=== PATIENT | female | born 1950 | race Caucasian/White ===

== ENCOUNTER 2019-07-23 23:46 | Emergency (ER) | payer MEDICARE ==
[~2019-07-23] VITALS: Ht 165.1 cm; Wt 95.2 kg
--- OUTSIDE RECORDS SUMMARY | ~2019-07-23 | XMS | Clinical Summary ---
Demographics + + + | Address | [address] | | | [place] [address] | + + + | Home Phone | | + + + | Preferred Language | Unknown | + + + | Marital Status | | + + + | Alevism Affiliation | Unknown | + + + | Race | Unknown | + + + | Ethnic Group | Unknown | + + + Author + + + | Author | [facility] [place] | | | and [place] | + + + | Organization | [facility] [place] | | | and [place] | + + + | Address | Unknown | + + + | Phone | Unavailable | + + + Support + + +---------+ + | Name | Relationship | Address | Phone | + + +---------+ + | stephanie"Inder" Tracy | ECON | Unknown | | + + +---------+ + Care Team Providers + +------+ + | Care Director Of Reservations Name | Role | Phone | + +------+ + | Mack Ravi MD | PCP | | + +------+ + Allergies Not on File Medications Not on file Active Problems Not on file Social History + +-------+ +--------+------+ | Tobacco Use | Types | Packs/Day | Years | Date | | | | | Used | | + +-------+ +--------+------+ | Never Assessed | | | | | + +-------+ +--------+------+ + + + | Sex Assigned at | Date Recorded | | | | + + + | Not on file | | + + + + + + + | Job Start Date | Occupation | Industry | + + + + | Not on file | Not on file | Not on file | + + + + + + + + | Travel History | Travel Start | Travel End | + + + + + + | No recent travel history available. | + + Last Filed Vital Signs Not on file Plan of Treatment +--------+---------+ + + + | Date | Type | Specialty | Care Team | Description | +--------+---------+ + + + | 11/02/ | Office | Cardiology | Joseluis Thomas, | | | 2019 | Visit | | [address] | | | | | | [place], | | | | | | [place] [address] | | | | | | [phone] | | | | | | | | +--------+---------+ + + + + + + + + | Health Maintenance | Due Date | Last Done | Comments | + + + + + | Vaccine: | | | | | Dtap/Tdap/Td (1 - | 3 | | | | Tdap) | | | | + + + + + | Vaccine: Zoster (1 | | | | | of 2) | 2 | | | + + + + + | Breast Cancer | | | | | Screening | 7 | | | + + + + + | Vaccine: | | | | | Pneumococcal 65+ (1 | 7 | | | | of 2 - PCV13) | | | | + + + + + | Vaccine: Influenza | | | | | (Season Ended) | 0 | | | + + + + + Results Not on filefrom Last 3 Months Insurance + +--------+ +--------+ +---------+--------+ | Payer | Benefi | Subscriber | Effect | Phone | Address | Type | | | t Plan | ID | xiomy | | | | | | / | | Dates | | | | | | Group | | | | | | + +--------+ +--------+ +---------+--------+ | MEDICARE | MEDICA | [id number] | 06/19/19 | [phone] | | Medica | | | RE | | 07-Pre | 5 | | re | | | PART A | | sent | | | | | | AND B | | | | | | + +--------+ +--------+ +---------+--------+ | AARP | AARP | [id number] | 02/18/19 | [phone] | | Indemn | | | MDCR | | 20-Pre | 0 | | ity | | | SUPPL | | sent | | | | + +--------+ +--------+ +---------+--------+ + +--------+ +--------+ + + | Guarantor Name | Accoun | Relation to | Date | Phone | Billing Address | | | t Type | Patient | of | | | | | | | | | | + +--------+ +--------+ + + | Anne Molina L | Person | Self | [birth year] | [address] | | | al/Fam | | 2 | [phone] | [place] [address] | | | karla | | | 9 (Home) | | + +--------+ +--------+ + + Advance Directives + + + + + | Type | Date Recorded | Patient | Explanation | | | | Salesperson Men'S Hats | | + + + + + | Power of | | | | | City Planning Teacher | | | | + + + + + | Advance | | | | | Directive | | | | + + + + +
--- OUTSIDE RECORDS SUMMARY | ~2019-07-23 | XMS | Clinical Summary ---
Demographics + + + | Address | [address] | | | [place] [address] | + + + | Home Phone | | + + + | Preferred Language | Unknown | + + + | Marital Status | | + + + | Yazidism Affiliation | Unknown | + + + | Race | Unknown | + + + | Ethnic Group | Unknown | + + + Author + + + | Author | [facility] [place] | | | and [place] | + + + | Organization | [facility] [place] | | | and [place] | [...] Team Providers + +------+ + | Care Veterinary Assistant Name | Role | Phone | + [...] | | | | | | [place] [address] | | | | | | [phone] | | | | | | | [...] +--------+ +---------+--------+ | MEDICARE | MEDICA | [id number] | 06/19/19 | [phone] | | Medica | | | RE | | 07-Pre | 5 | | re | | | PART A | | sent | | | | | | AND B | | | | | | + +--------+ +--------+ +---------+--------+ | AARP | AARP | [id number] | 02/18/19 | [phone] | | Indemn [...] | 2 | [phone] | [place] [address] | | | karla | | | 9 (Home) | | + +--------+ +--------+ + + Advance Directives + + + + + | Type | Date Recorded | Patient | Explanation | | | | Adhesive Sprayer | | + + + + + | Power of | | | | | Kiln Mechanic | | | | + + + + + | Advance | | | | | Directive | | | | + + + + +
[~2019-07-23 23:46] MED LIST: COUMADIN5 MG PO
[2019-07-24] MEDS ORDERED: CARVEDILOL25 MG (00:05)
[2019-07-24] MEDS ORDERED: IRBESARTAN75 MG PO (00:06)
[2019-07-24] MEDS ORDERED: DILTIAZEM 24HR240 M1 PO (00:06)
[2019-07-24] MEDS ORDERED: PRAVASTATIN SOD40 MG PO (00:07)
[2019-07-24] MEDS ORDERED: LEVOTHYROXINE112 MCG PO (00:07)
[2019-07-24] MEDS ORDERED: OMEPRAZOLE20 MG PO (00:07)
[2019-07-24] MEDS ORDERED: FLAGYL500 MG PO (00:07)
[2019-07-24] MEDS ORDERED: TRULICITY1.5 MG/0.5 SQ (00:08)
== END 2019-07-24 01:37 | disposition home or self-care (01) ==
LOC: ED 23:46
DX: S01.01XA Laceration without foreign body of scalp, initial encounter (principal); S16.1XXA Strain of muscle, fascia and tendon at neck level, initial encounter; I48.91 Unspecified atrial fibrillation; Z23 Encounter for immunization; Z86.73 Personal history of transient ischemic attack (TIA), and cerebral infarction without residual deficits; Z87.891 Personal history of nicotine dependence; Z79.899 Other long term (current) drug therapy; Z79.01 Long term (current) use of anticoagulants; W18.30XA Fall on same level, unspecified, initial encounter
CPT/HCPCS: 70450; 72125; 90471; 90715; 99284-25

== ENCOUNTER 2019-12-27 12:50 | Emergency (ER) | payer MEDICARE ==
[~2019-12-27] VITALS: Ht 165.1 cm; Wt 96.6 kg
[~2019-12-27 12:50] MED LIST changes: +CARVEDILOL25 MG; +DILTIAZEM 24HR240 M1 PO; +FLAGYL500 MG PO; +IRBESARTAN75 MG PO; +LEVOTHYROXINE112 MCG PO; +OMEPRAZOLE20 MG PO; +PRAVASTATIN SOD40 MG PO; +TRULICITY1.5 MG/0.5 SQ
[2019-12-27] MEDS ORDERED: VALSARTAN80 MG PO (13:08)
[2019-12-27] MEDS ORDERED: METFORMIN HCL500 M1 PO (13:09)
[2019-12-27] MEDS ORDERED: POTASSIUM CHLOR8 ME1 PO (13:09)
== END 2019-12-27 15:13 | disposition home or self-care (01) ==
LOC: ED 12:50
DX: S42.211A Unspecified displaced fracture of surgical neck of right humerus, initial encounter for closed fracture (principal); W18.30XA Fall on same level, unspecified, initial encounter; Z86.73 Personal history of transient ischemic attack (TIA), and cerebral infarction without residual deficits; I48.91 Unspecified atrial fibrillation; Z79.899 Other long term (current) drug therapy; Z79.01 Long term (current) use of anticoagulants; Z79.84 Long term (current) use of oral hypoglycemic drugs
CPT/HCPCS: 73030; 73060; 85025; 85610; 99283-25

== ENCOUNTER 2020-04-10 11:16 | Observation (INO) | payer MEDICARE ==
[~2020-04-10] VITALS: Ht 165.1 cm; Wt 98.1 kg
[~2020-04-10 11:16] MED LIST changes: -COUMADIN5 MG PO; +METFORMIN HCL500 M1 PO; +POTASSIUM CHLOR8 ME1 PO; +VALSARTAN80 MG PO; +WARFARIN SODIUM5 MG PO
[2020-04-10] MEDS ORDERED: TRULICITY1.5 MG/0.5 SUB-Q (12:18)
[2020-04-10] MEDS ORDERED: SOLIQUA 100 UNIT3 ML SQ (12:18)
--- NOTE | 2020-04-10 15:35 | NUR ---
PT ADMITTED TO MED/SURG VIA STRETCHER. REPORT RECIEVED BY ALFRED VAN IN ER. PT IS ALERT X3. SKIN INTACT. PT HAS APHAGIA. SLOW TO RESPOND. +1 SWELLING EDEMA ON BLE. REDNESS NOTED UNDER RIGHT BREAST. BOWEL TONES ACTIVE. 3 UNITS OF INSULIN ADMINISTERED. 60G DIET. ATE MEAL IN ER. TOLERATED WELL. ADMINISTERED IV LR BOLUS 500ML/HR. IN ROOM, ANSWERING MOST OF QUESTIONS. STATES HE WONT BE STAYING TONIGHT. EDUCATION GIVEN ON USE OF CALL LIGHT. VERBALIZED UNDERSTANDING. BED ALARM ON.
[2020-04-10] MEDS ORDERED: HYDROCHLOROTHIA25 MG PO (16:21)
[2020-04-10] MEDS ORDERED: DILT-XR240 MG PO (16:48)
--- NOTE | 2020-04-10 16:51 | NUR ---
Medications reconciled using pharmacy records and interview with patient and her
[2020-04-10] MEDS ORDERED: ESTRACE42.5 GM PV (17:01)
--- NOTE | 2020-04-10 18:00 | NUR ---
PATIENT IS SITTING UP IN BED WATCHING TV. VITALS AND I&OS ARE DONE AND DOCUMENTED. CALL LIGHT IS IN REACH. NO FURTHER NEEDS AT THIS TIME.
--- NOTE | 2020-04-10 18:50 | NUR ---
DR NOTIFIED OF MAG 1.1. MD STATES WILL PLACE ORDERS.
--- NOTE | 2020-04-10 19:25 | NUR ---
2 PA TO THE BEDSIDE COMMODE. PATIENT SAT FOR AWHILE. PATIENT DID NOT ABLE TO VOID. PATIENT IS BACK IN BED. PATIENT SEEMED A LITTLE UNSTABLE ON GAIT THAT NEEDS 2 PA THIS TIME. WE'LL CONTINUE TO MONITOR.
--- NOTE | 2020-04-10 19:43 | NUR ---
REPORT RECEIVED FROM KETTY RN. PT AWAKE AND ALERT LAYING IN BED AND HAD JUST FINISHED USING THE BSC WITH THE HELP OF SCARLETT DONALDSON. PT REPORTS NO FURTHER NEEDS AT THIS TIME, WILL CONTINUE PLAN OF CARE.
--- NOTE | 2020-04-10 21:00 | NUR ---
pt AWAKE RESTING IN BED. VSS. PRIMARY RN NOW IN ROOM. BLADDER SCAN 478 MLS. 2PA WITH FWW TO BSC FOR 400 ML VOID AND BACK TO BED. pt UNSTEADY ON FEET. PRIMARY RN IN ROOM FOR MEDICATION ADMINISTRATION AT THIS TIME.
--- NOTE | 2020-04-10 21:10 | NUR ---
THIS RN IN TO ADMINISTER ORDERED MEDICATIONS AND ASSESS PT. PT LAYING IN BED AWAKE AND ALERT. PT COMPLAINS OF NO PAIN WHEN ASKED. PT BLADDER SCANNED BY CARLOTA HAN SHE WAS DUE TO VOID. AFTER SCANNING PT STATED SHE COULD TRY TO USE VOID, PT UP TO BEDSIDE COMMODE USING FWW AND WAS ABLE TO VOID. PT ASSISTED BACK INTO BED. SCHEDULED MEDICATIONS ADMINISTERED, 3 UNITS OF INSULIN GIVEN PER SLIDING SCALE. PT NOW LAYING BACK IN BED WATCHING TV, SCD ON ONLY ON L LEG PER PT. REQUEST. PT REPORTS NO FURTHER NEEDS WHEN ASKED, WILL CONTINUE PLAN OF CARE. CALL LIGHT IN REACH, BED IN LOWEST POSITION, IVF AND IV MEDICATION INFUSING ORDERED.
--- NOTE | 2020-04-10 22:17 | NUR ---
THIS RN IN TO ADMINISTER SCHEDULED IV MEDICATION. PT LAYING IN BED SLEEPING AT THIS TIME. PT AWOKE BRIEFLY WHILE HANGING NEW BAG OF MAGNESIUM SULFATE. PT REPORTED NO NEEDS WHEN ASKED AND WENT BACK TO SLEEP. CALL LIGHT IN REACH, BED IN LOWEST POSITION, WILL CONTINUE PLAN OF CARE.
--- NOTE | 2020-04-11 00:12 | NUR ---
THIS RN IN TO ADMINISTER ORDERED MEDICATION. PT SLEEPING IN BED AND AWOKE BRIEFLY WHILE HANGING NEW BAG OF IV MAGNESIUM SULFATE. PT REPORTS NO FURTHER NEEDS WHEN ASKED AND WENT BACK TO SLEEP. CALL LIGHT IN REACH, BED IN LOWEST POSITION, WILL CONTINUE PLAN OF CARE.
--- NOTE | 2020-04-11 01:25 | NUR ---
THIS ELECTRONIC INDUSTRIAL CONTROLS MECHANIC AND CARLOTA HAN HELPED PATIENT USE THE BEDSIDE COMMODE. PATIENT STATED SHE ALREADY WENT ON HER UNDERWEAR. BED LINEN CHANGED. PUT NEW UNDER WEAR AND GOWN THIS ELECTRONIC INDUSTRIAL CONTROLS MECHANIC AND CARLOTA HAN HELPED PATIENT USE THE BEDSIDE COMMODE. PATIENT ALREADY VOIDED ON HER UNDERWEAR. BED LINEN, GOWN AND UNDERWEAR CHANGED. PATIENT IS BACK IN BED. V/S AND I&O'S TAKEN AND RECORDED. CALL LIGHT WITHIN REACH.
--- NOTE | 2020-04-11 01:54 | NUR ---
IV PUMP ALARMING, FLUID INFUSING WNL. pt AWAKE RESTING IN BED. pt STATES UNABLE TO FIND CALL LIGHT. CALL LIGHT NEXT TO pt'S LEFT ARM IN REACH. PER pt THREE VOIDS IN ATTENDS BECAUSE SHE COULD NOT CALL FOR HELP. pt INSTRUCTED TO CALL OUT IF THIS HAPPENS AGAIN WHERE SHE CANNOT PUSH CALL BUTTON, VERBALIZES UNDERSTANDING. 2PA TO BSC FOR VOID WITH FWW. GAIT UNSTEADY, pt UNABLE TO BALANCE SELF TO PULL OWN ATTENDS DOWN, ASSISTANCE PROVIDED. NEW ATTENDS IN PLACE, LINENS AND GOWN CHANGED, CHUX UNDER pt. VSS. CALL LIGHT IN LAP. SCD ON LEFT LEG, pt REFUSES RIGHT LEG SCD. NO ADDITIONAL REQUESTS.
--- NOTE | 2020-04-11 02:00 | NUR ---
THIS RN IN TO ASSESS PT. PT AWAKE AND HAD JUST GONE TO THE BATHROOM. PT REPORTS NO PAIN AT THIS TIME WHEN ASKED. ASSESSMENT COMPLETE. 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 PT REPORTS NO FURTHER NEEDS WHEN ASKED AND STATES SHE WILL BE GOING BACK TO SLEEP. CALL LIGHT IN REACH, BED IN LOWEST POSITION, IVF INFUSING ORDERED. WILL CONTINUE PLAN OF CARE.
--- NOTE | 2020-04-11 05:45 | NUR ---
THIS RN IN TO TAKE PT VITALS WITH THE HELP OF SCARLETT DONALDSON. LAB IN ROOM DRAWING BLOOD, PT AWAKE AND ALERT. VITALS TAKEN AND ARE STABLE, SCHEDULED MEDICATION ADMINISTERED AT THIS TIME (SEE MAR). PT STATES SHE DOES NOT NEED TO USE THE BATHROOM AT THIS TIME BUT WILL CALL SOON WHEN SHE NEEDS TO. PT REPORTS NO FURTHER NEEDS WHEN ASKED. WILL CONTINUE PLAN OF CARE. CALL LIGHT IN REACH, BED IN LOWEST POSITION.
--- NOTE | 2020-04-11 06:30 | NUR ---
CALL LIGHT ANSWERED, pt INCONTINENT OF LARGE VOID. MARY ASHBY CHANGED. 2PA WITH FWW TO BSC AND BACK TO BED. SCD ON. IVF INFUSING WNL. CALL LIGHT WITHIN REACH. NO ADDITIONAL REQUESTS AT THIS TIME.
--- NOTE | 2020-04-11 06:44 | NUR ---
THIS RN IN TO CHECK ON PT., PT STATED HE NEEDED TO VOID. PT UP TO BATHROOM WITH FWW AND BACK WITHOUT DIFFICULTY. PT STILL DENIES DOUBLE VISION. PT REPORTS NO FURTHER NEEDS AT THIS TIME. CALL LIGHT IN REACH, BED IN LOWEST POSITION, WILL CONTINUE PLAN OF CARE.
--- NOTE | 2020-04-11 07:16 | NUR ---
PT LYING IN BED. EYES CLOSED. RR WNL WITH UNLABORED BREATHING. IV LR FLUIDS INFUSING 85ML/HR. SHIFT REPORT RECIEVED BY RN. CALL LIGHT IN REACH.
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
--- NOTE | 2020-04-11 10:24 | NUR ---
PT BEING ASSISTED BY NURSE LIDIA FROM BATHROOM TO THE CHAIR. PT WORKED WITH PHYSICAL THERAPY. IN ROOM. CALL LIGHT IN REACH.
--- NOTE | 2020-04-11 11:03 | NUR ---
ROUNDED ON PT. CASEMANAGEMENT IN ROOM. NO NEEDS AT THIS TIME.
--- NOTE | 2020-04-11 11:25 | NUR ---
MD IN ROOM. PT SITTING UP IN BED. PT STATES HAVING PAIN ON HANDS AND SHOULDERS. STATES HAVING FALL 8 WEEKS AGO. CALL LIGHT IN REACH.
--- NOTE | 2020-04-11 12:18 | NUR ---
PT SITTING UP IN CHAIR. ORDERED MEAL WITH ASSISTANCE. SCHEDULED MEDS GIVEN. IV SALINE LOCKED. CALL LIGHT IN REACH.
--- NOTE | 2020-04-11 12:44 | NUR ---
ASSISTED PT TO THE SHOWER. SKIN INTACT. PT TOLERATED WELL AMBULATING. SCARLETT RIVERS ASSISTING PT BACK TO BED.
--- NOTE | 2020-04-11 15:04 | NUR ---
PT SITTING UP IN CHAIR. PAIN IS TOLERABLE. DENIES NUMBNESS AND TINGLING. ASSESSMENT COMPLETE. NO NEEDS AT THIS TIME. CALL LIGHT IN REACH.
--- NOTE | 2020-04-11 15:49 | NUR ---
BEFORE BREAKFAST PATIENT WASHED HER FACE AND BRUSHED HER TEETH. AFTER LUNCH PATIENT BRUSHED HER TEETH. DID BREAKFAST AND LUNCH BLOOD SUGAR CHECK.
--- NOTE | 2020-04-11 16:40 | NUR ---
PT IN ROOM SITTING UP IN BED. IN ROOM PLAYING CARDS WITH PT. INSULIN GIVEN 5 UNITS. SCHEDULED MEDS GIVEN. NO FURTHER NEEDS AT THIS TIME. CALL LIGHT IN REACH.
--- NOTE | 2020-04-11 17:55 | NUR ---
PT IS A 1/FWW. TOLERATES WELL. PAIN IS IN CONTROL. NO PAIN MEDS GIVEN. BLOOD SUGAR CHECKS. 60G CARB DIET. SKIN INTACT. IV SALINE LOCKED. ASPHAGIA NOTED. FOR SUPPORT.
--- NOTE | 2020-04-11 19:45 | NUR ---
REPORT RECEIVED FROM DAYSSCFT RN, PT LAYING IN BED AWAKE. PT ASKED FOR PRN TYLENOL FOR GENERAL DISCOMFORT AND HAND PAIN /. PRN TYLENOL ADMINISTERED. PT REPORTS NO FURTHER NEEDS AT THIS TIME, WILL CONTINUE PLAN OF CARE. CALL LIGHT IN REACH, BED IN LOWEST POSITION.
--- NOTE | 2020-04-11 20:45 | NUR ---
BED ALARM SOUNDING. pt SITTING AT SIDE OF BED REMOVING SOCKS. DENIES TOILETING NEEDS AT THIS TIME. VSS. CBG 306. PRIMARY RN MEREDITH IN ROOM AT THIS TIME.
--- NOTE | 2020-04-11 20:50 | NUR ---
THIS RN IN TO ASSES PT. PT AWAKE AND ALERT, CARLOTA HAN IN ROOM FINISHING VITALS. SCHEDULED MEDICATIONS ADMINISTERED, 7 UNITS OF INSULIN GIVEN PER SLIDING SCALE. PT REPORTS NO PAIN AT THIS TIME WHEN ASKED AND STATES THE PRN TYLENOL HELPED. ASSESSMENT COMPLETED AT THIS TIME. PT REPORTS NO FURTHER NEEDS AND STATES SHE WILL BE WATCHING TV BEFORE SHE GOES TO SLEEP. CALL LIGHT IN REACH, BED IN LOWEST POSITION, WILL CONTINUE PLAN OF CARE.
--- NOTE | 2020-04-12 00:36 | NUR ---
CALL LIGHT ANSWERED. PRN TYLENOL ADMINISTERED REQUESTED. pt DENIES PAIN AT THIS TIME STATES "MY HANDS ARE SO MUCH BETTER. I JUST REALLY WANT THE TYLENOL TO HELP ME SLEEP". SBA WITH FWW TO RESTROOM FOR 100 ML VOID AND UNMEASURED VOID. SMALL AMT INCONTINENCE ON PAUL PAD, PAD CHANGED. pt BACK IN BED. CALL LIGHT WITHIN REACH. BED ALARM ON. LIGHTS OFF REQUESTED.
--- NOTE | 2020-04-12 01:25 | NUR ---
THIS RN IN TO CHECK ON PT. PT AWAKE AND ALERT LAYING IN BED. PT STATED SHE COULD NOT FEEL ASLEEP. PT EDUCATED ON HER SLIDING SCALE INSULIN SHE STATED LAST TIME SHE HAD A "HIGH" AMOUNT SHE HAD BECOME HYPOGLYCEMIC. PT DENIES ANY SYMPTOMS OF HYPOGLYCEMIA AND STATES SHE FEELS FINE. PT STATES SHE WILL ATTEMPT TO GO TO SLEEP. PT REPORTS NO FURTHER NEEDS WHEN ASKED. CALL LIGHT IN REACH, BED IN LOWEST POSITION, WILL CONTINUE PLAN OF CARE.
--- NOTE | 2020-04-12 04:52 | NUR ---
PT SLEPT THROUGH MOST OF THE NIGHT. PRN TYLENOL GIVEN TWICE OVER NIGHT FOR GENERAL DISCOMFORT AND MINOR HAND PAIN. 7 UNITS OF INSULIN GIVEN AT THE START OF THE SHIFT. PT HAS BEEN SALINE LOCKED, VSS, USING CALL LIGHT APPROPRIATELY.
--- NOTE | 2020-04-12 05:39 | NUR ---
CALL LIGHT ANSWERED. 1PA WITH FWW TO RESTROOM FOR VOID. INCONTINENCE NOTED IN ATTENDS. ATTENDS CHANGED. pt COMPLETED OWN PAUL CARE AND WASHED HANDS. GAIT STEADY WITH FWW. BACK IN BED. CRITICAL CARE PARAMEDIC IN ROOM.
--- NOTE | 2020-04-12 05:55 | NUR ---
THIS RN IN TO ASSESS PT AND ADMINISTER SCHEDULED MEDICATION. PT HAD FINISHED USING THE BATHROOM AND WAS GETTING HER LABS DRAWN. PT ALERT AND ORIENTED AT THIS TIME AND HAS NO COMPLAINTS OF PAIN. ASSESSMENT COMPLETE, VS COMPLETE. PT REPORTS NO FURTHER NEEDS AT THIS TIME AND STATES SHE WILL TRY TO GO BACK TO SLEEP. CALL LIGHT IN REACH, BED IN LOWEST POSITION, WILL CONTINUE PLAN OF CARE.
--- NOTE | 2020-04-12 08:00 | NUR ---
REPORT RECEIVED. PT ASSISTED TO CHAIR FOR BREAKFAST. BLOOD SUGAR CHECKED. DENEIS PAIN OR NEEDS. CALL LIGHT IN REACH.
--- NOTE | 2020-04-12 10:00 | NUR ---
ASSESSMENT COMPLETED. PT SITTING UP IN CHAIR WITH . NO CONCERNS. CALL LIGHT IN REACH.
--- NOTE | 2020-04-12 10:09 | NUR ---
PATIENT IS SITTING UP IN HER CHAIR. PATIENT IS PLAYING CARDS WITH . VITALS AND I&OS ARE DONE AND DOCUMENTED. CALL LIGHT IS IN REACH. NO FURTHER NEEDS AT THIS TIME.
--- NOTE | 2020-04-12 12:13 | NUR ---
ROUNDED WITH DR STRINGER. POC DISCUSSED.
[2020-04-12] MEDS ORDERED: PREDNISONE20 MG PO (12:15)
--- NOTE | 2020-04-12 12:43 | NUR ---
IN TO ADMINSTER INSULIN AND PREDNISONE. PT REQUESTED TYLENOL FOR 2/10 PAIN. DENIES FURTHER NEEDS.
--- NOTE | 2020-04-12 13:30 | NUR ---
Spoke with Mariluz and Inder. They cont. to plan to dc today. Deny needs. Discussed with Inder his caregiving for pt's mom, his sister with [place], and his . He states he is ok at this point as pt's 88 yo mother is in good health. He is working with [facility] to get his sister in [employer] program as he states she is bored and watches TV. He has questions for next covnj vaccination clinic, [facility] Inder can schedule family for vaccine on Saturday to receive vaccinations on and .
--- NOTE | 2020-04-12 14:31 | NUR ---
DISCHARGE INNSTRUCTIONS PROVIDED. ALL QUESTIONS ANSWERED.
--- NOTE | 2020-04-12 21:59 | EKG ---
[facility] [address] [facility] [place] [address] Signed Normal sinus rhythm Abnormal QRS-T angle, consider primary T wave abnormality , in Lead 1 and aVL Abnormal ECG No previous ECGs available Confirmed by EDUARDA STRINGER MD ([id number]) on 04/12/2020 9:59:20 PM Electronically Signed By: EDUARDA STRINGER MD 04/12/20 2159 PATIENT NAME: SIRENARodyNORA Electrocardiogram DATE OF : 52 PHYSICIAN: EDUARDA STRINGER MD REPORT #: [id number] REPORT IS CONFIDENTIAL AND NOT TO BE RELEASED WITHOUT AUTHORIZATION
== END 2020-04-12 14:20 | disposition home or self-care (01) ==
LOC: ED 11:16 → MS 11:17
PROVIDERS: ADMIT Internal Medicine; ATTEND Internal Medicine
DX: R53.81 Other malaise (principal); R50.9 Fever, unspecified; M19.041 Primary osteoarthritis, right hand; I10 Essential (primary) hypertension; I48.0 Paroxysmal atrial fibrillation; E11.42 Type 2 diabetes mellitus with diabetic polyneuropathy; I69.320 Aphasia following cerebral infarction; E03.9 Hypothyroidism, unspecified; K21.9 Gastro-esophageal reflux disease without esophagitis; E78.5 Hyperlipidemia, unspecified; Z79.01 Long term (current) use of anticoagulants; Z79.84 Long term (current) use of oral hypoglycemic drugs; Z20.822 Contact with and (suspected) exposure to COVID-19
CPT/HCPCS: 36415; 71045; 73130; 80053; 81001; 82550; 83036; 83605; 83615; 83735; 84100; 84155; 84165; 84439; 84443; 84550; 85025; 85610; 85651; 86038; 86060; 86140; 86431; 86703; 87502; 93005; 93010; 97116; 97162; 99285-25; C9803; J1815; J3475; J7121; J7512; U0003

== ENCOUNTER 2020-05-24 10:50 | Emergency (ER) | payer MEDICARE ==
[~2020-05-24] VITALS: Ht 165.1 cm; Wt 98.0 kg
[~2020-05-24 10:50] MED LIST changes: +DILT-XR240 MG PO; +ESTRACE42.5 GM PV; +HYDROCHLOROTHIA25 MG PO; +PREDNISONE20 MG PO; +SOLIQUA 100 UNIT3 ML SQ; +TRULICITY1.5 MG/0.5 SUB-Q
[2020-05-24] MEDS ORDERED: POTASSIUM CHLOR8 ME1 PO (11:01)
[2020-05-24] MEDS ORDERED: HYDROCHLOROTHIA25 MG PO (11:01)
--- NOTE | 2020-05-24 15:13 | EKG ---
[facility] [address] [place] [address] Signed Supraventricular tachycardia Nonspecific ST and T wave abnormality Abnormal ECG When compared with ECG of 10-APR-2020 11:59, Vent. rate has increased BY 74 BPM Confirmed by EEMKA GLASGOW MD ([id number]) on 05/24/2020 3:13:33 PM Electronically Signed By: EMEKA GLASGOW MD 05/24/20 1513 PATIENT NAME: OSMEL VARGASMITCHELL OVERTON Electrocardiogram DATE OF : [birth year] PHYSICIAN: EMEKA GLASGOW MD REPORT #: [id number] REPORT IS CONFIDENTIAL AND NOT TO BE RELEASED WITHOUT AUTHORIZATION
--- NOTE | 2020-05-24 15:15 | EKG ---
[facility] [address] [place] [address] Signed Normal sinus rhythm Normal ECG When compared with ECG of 24-MAY-2020 10:54, (Unconfirmed) Vent. rate has decreased BY 89 BPM Confirmed by EMEKA GLASGOW MD ([id number]) on 05/24/2020 3:15:21 PM Electronically Signed By: EMEKA GLASGOW MD 05/24/20 1515 PATIENT NAME: SAMNORA OVERTON Electrocardiogram DATE OF : [birth year] PHYSICIAN: EMEKA GLASGOW MD REPORT #: [id number] REPORT IS CONFIDENTIAL AND NOT TO BE RELEASED WITHOUT AUTHORIZATION
== END 2020-05-24 15:10 | disposition home or self-care (01) ==
LOC: ED 10:50
DX: I48.91 Unspecified atrial fibrillation (principal); E83.42 Hypomagnesemia; Z86.73 Personal history of transient ischemic attack (TIA), and cerebral infarction without residual deficits; E11.40 Type 2 diabetes mellitus with diabetic neuropathy, unspecified; Z87.891 Personal history of nicotine dependence; Z79.899 Other long term (current) drug therapy; Z79.01 Long term (current) use of anticoagulants; Z79.4 Long term (current) use of insulin
CPT/HCPCS: 71045; 80053; 83735; 84443; 84484; 85025; 85610; 93005; 93010; 96374; 96375; 99285-25; J3475; J7030

== ENCOUNTER 2022-12-12 05:49 | Observation (INO) | payer MEDICARE ==
[~2022-12-12] VITALS: Ht 165.1 cm; Wt 102.9 kg
[~2022-12-12 05:49] MED LIST changes: +ESTRADIOL42.5 GM VAGINAL; +FLECAINIDE ACET50 MG PO; +METOPROLOL TART25 MG PO; -SOLIQUA 100 UNIT3 ML SQ; +SOLIQUA 100 UNIT3 ML SUB-Q; -WARFARIN SODIUM5 MG PO
[2022-12-12 06:22] LABS: BASOPHILS 0.3 % (0-2); EOSINOPHILS 0.4 % (0-6); HEMATOCRIT 42.1 % (35.0-50.0); HEMOGLOBIN 13.9 g/dL (12.0-18.0); LYMPHOCYTES 9.3 % (24-44); MCH 30.3 (27-36); MCV 91.8 fl (81-99); MONOCYTES 7.7 % (0-12); NEUTROPHILS 82.3 % (39-80); PLATELET COUNT 178 K/uL (140-440); RBC 4.58 M/ul (4.3-5.7); RDW 14.5 (10.5-15.0)
--- NOTE | 2022-12-12 06:32 | EKG ---
[facility] [address] [place] [address] Signed Atrial fibrillation with rapid ventricular response Abnormal ECG When compared with ECG of 24-MAY-2020 14:30, Atrial fibrillation has replaced Sinus rhythm Vent. rate has increased BY 48 BPM Confirmed by NADIA WAY MD ([id number]) on 12/12/2022 6:32:09 AM Electronically Signed By: NADIA WAY 12/12/22 0632 PATIENT NAME: OSMEL VARGASMITCHELL OVERTON Electrocardiogram DATE OF : 52 PHYSICIAN: NADIA WAY REPORT #: [id number] REPORT IS CONFIDENTIAL AND NOT TO BE RELEASED WITHOUT AUTHORIZATION
[2022-12-12 06:36] LABS: INR 4.7 (0.80-1.30); PROTIME 42.9 Sec (11.2-14.2)
[2022-12-12 06:44] LABS: ALBUMIN 3.2 g/dL (3.4-5.0); ALBUMIN/GLOBULIN RATIO 0.84 (1.1-2.4); ALCOHOL, MEDICAL <3 ng/dL (<3); ALKALINE PHOSPHATASE 77 U/L (46-116); ALT (SGPT) 13 U/L (14-59); ANION GAP 10.6 (7-21); AST (SGOT) 10 U/L (15-37); BILIRUBIN, TOTAL 0.5 ng/dL (0.2-1.0); BUN/CREATININE RATIO 12.82 (6.0-28.6); CALCIUM 8.6 mg/dL (8.5-10.1); CARBON DIOXIDE 28 mmol/L (21-32); CHLORIDE 100 mmol/L (98-107); CREATININE, SERUM 0.78 mg/dL (0.55-1.02); GLOMERULAR FILTRATION RATE,EST 81 mL/min (>60); LACTIC ACID, BLOOD 1.3 mmol/L (0.4-2.0); POTASSIUM 3.6 mmol/L (3.5-5.1); UREA NITROGEN 10 mg/dL (7-18)
[2022-12-12 06:53] LABS: INFLUENZA B NAA NEGATIVE (NEGATIVE); RESPIRATORY SYNCYTIAL VIR NAA NEGATIVE (NEGATIVE)
[2022-12-12 06:54] LABS: BILIRUBIN, URINE POSITIVE (negative); BLOOD/HGB, URINE TRACE-I (Negative); KETONE, URINE SMALL (Negative); LEUK ESTERASE, URINE NEGATIVE (negative); NITRITE, URINE NEGATIVE (negative)
[2022-12-12] MEDS ORDERED: OMEPRAZOLE20 MG PO (07:08)
[2022-12-12] MEDS ORDERED: METOPROLOL TART25 MG PO (07:09)
[2022-12-12 07:20] LABS: BACTERIA, URINE NONE SEEN /hpf (negative); CASTS, URINE NONE SEEN \\lpf; COLLECTION TYPE, URINE CATH; CRYSTALS, URINE NONE SEEN (0-1+); EPITHELIAL CELLS, URINE 0 /lpf (0-1+); REFLEX CULTURE, URINE No (No)
[2022-12-12] MEDS ORDERED: FEROSUL325 MG PO (08:51)
[2022-12-12] MEDS ORDERED: MAGNESIUM OXID420 MG PO (08:52)
[2022-12-12 09:08] VITALS: BP 151/74
[2022-12-12 14:54] VITALS: BP 102/69
[2022-12-12 18:29] VITALS: BP 139/71
[2022-12-12 20:11] VITALS: BP 148/62
[2022-12-13 03:12] VITALS: BP 132/80
[2022-12-13 05:43] LABS: BASOPHILS 0.2 % (0-2); HEMATOCRIT 38.1 % (35.0-50.0); HEMOGLOBIN 12.8 g/dL (12.0-18.0); LYMPHOCYTES 8.4 % (24-44); MCH 30.7 (27-36); MCHC 33.7 g/dl (30-36); MCV 91.2 fl (81-99); MONOCYTES 4.3 % (0-12); NEUTROPHILS 87.1 % (39-80); PLATELET COUNT 157 K/uL (140-440); RBC 4.17 M/ul (4.3-5.7); RDW 14.8 (10.5-15.0)
[2022-12-13 05:58] LABS: PROTIME 47.9 Sec (11.2-14.2)
[2022-12-13 05:59] LABS: INR 5.47 (0.80-1.30)
[2022-12-13 06:06] LABS: ANION GAP 10.1 (7-21); BUN/CREATININE RATIO 25.31 (6.0-28.6); CALCIUM 8.9 mg/dL (8.5-10.1); CREATININE, SERUM 0.79 mg/dL (0.55-1.02); POTASSIUM 4.1 mmol/L (3.5-5.1)
[2022-12-13 06:26] VITALS: BP 146/78
[2022-12-13 10:00] VITALS: BP 155/73
[2022-12-13 14:05] VITALS: BP 145/67
--- NOTE | 2022-12-13 17:55 | EKG ---
[facility] [address] [facility] [place] [address] Signed Normal sinus rhythm Nonspecific ST and T wave abnormality Abnormal ECG When compared with ECG of 12-DEC-2022 05:49, Sinus rhythm has replaced Atrial fibrillation Nonspecific T wave abnormality now evident in Lateral leads Confirmed by REMY OSBORNE MD ([id number]) on 12/13/2022 5:55:09 PM Electronically Signed By: REMY OSBORNE 12/13/22 1755 PATIENT NAME: SAMNORA OVERTON Electrocardiogram DATE OF : 52 PHYSICIAN: REMY OSBORNE REPORT #: [id number] REPORT IS CONFIDENTIAL AND NOT TO BE RELEASED WITHOUT AUTHORIZATION
[2022-12-13 18:00] VITALS: BP 167/79
[2022-12-13 20:05] VITALS: BP 139/66
[2022-12-14 05:44] VITALS: BP 144/73
[2022-12-14 05:58] LABS: BASOPHILS 0.5 % (0-2); EOSINOPHILS 0.2 % (0-6); HEMATOCRIT 36.9 % (35.0-50.0); HEMOGLOBIN 12.3 g/dL (12.0-18.0); LYMPHOCYTES 11.3 % (24-44); MCH 30.5 (27-36); MCHC 33.4 g/dl (30-36); MCV 91.4 fl (81-99); MONOCYTES 6.9 % (0-12); NEUTROPHILS 81.1 % (39-80); PLATELET COUNT 167 K/uL (140-440); RBC 4.03 M/ul (4.3-5.7); RDW 14.7 (10.5-15.0)
[2022-12-14 06:09] LABS: ANION GAP 9.6 (7-21); BUN/CREATININE RATIO 30.76 (6.0-28.6); CALCIUM 8.8 mg/dL (8.5-10.1); CREATININE, SERUM 0.78 mg/dL (0.55-1.02); INR 3.29 (0.80-1.30); POTASSIUM 3.6 mmol/L (3.5-5.1); PROTIME 32.2 Sec (11.2-14.2)
[2022-12-14 10:00] VITALS: BP 136/74
[2022-12-14 13:52] VITALS: BP 133/64
[2022-12-14] MEDS ORDERED: WARFARIN SODIUM5 MG PO ×2 (13:57→14:31)
[2022-12-14] MEDS ORDERED: AMOX TR-K CLV1 EAC1 PO (14:07)
[2022-12-14 15:19] VITALS: BP 166/75
== END 2022-12-14 15:40 | disposition home or self-care (01) ==
LOC: ED 05:49 → MS 05:50
PROVIDERS: Internal Medicine; ADMIT Family Medicine; ATTEND Family Medicine
DX: I48.91 Unspecified atrial fibrillation (principal); I10 Essential (primary) hypertension; E11.40 Type 2 diabetes mellitus with diabetic neuropathy, unspecified; E03.9 Hypothyroidism, unspecified; I69.319 Unspecified symptoms and signs involving cognitive functions following cerebral infarction; I69.320 Aphasia following cerebral infarction; R09.02 Hypoxemia; J18.9 Pneumonia, unspecified organism; T45.515A Adverse effect of anticoagulants, initial encounter; R79.89 Other specified abnormal findings of blood chemistry; I69.341 Monoplegia of lower limb following cerebral infarction affecting right dominant side; Z11.52 Encounter for screening for COVID-19; Z79.01 Long term (current) use of anticoagulants; Z87.891 Personal history of nicotine dependence; Z79.85 Long-term (current) use of injectable non-insulin antidiabetic drugs; Z79.84 Long term (current) use of oral hypoglycemic drugs; Z79.899 Other long term (current) drug therapy; Z23 Encounter for immunization
CPT/HCPCS: 36415; 51702; 70450; 71045; 80048; 80053; 81001; 83036; 83605; 83880; 84443; 84484; 85025; 85610; 87040; 87502; 93005; 93010; 93306; 94760; 94762; 96366; 97116; 97162; 97530; 99285-25; A9270; C9803; G0008; G0378; G0480; J0696; J1815; J1940; J2930; J3490; J7040; U0002

== ENCOUNTER 2023-02-02 09:07 | Emergency (ER) | payer MEDICARE ==
[~2023-02-02] VITALS: Ht 165.1 cm; Wt 94.0 kg
[~2023-02-02 09:07] MED LIST changes: +AMOX TR-K CLV1 EAC1 PO; +FEROSUL325 MG PO; +MAGNESIUM OXID420 MG PO; +OXYBUTYNIN CHLOR5 MG PO; +WARFARIN SODIUM5 MG PO
[2023-02-02 09:35] LABS: BASOPHILS 0.5 % (0-2); EOSINOPHILS 1.3 % (0-6); HEMOGLOBIN 14.7 g/dL (12.0-18.0); LYMPHOCYTES 18.5 % (24-44); MCH 30.8 (27-36); MCHC 34.1 g/dl (30-36); MCV 90.4 fl (81-99); MONOCYTES 8.6 % (0-12); NEUTROPHILS 71.1 % (39-80); PLATELET COUNT 227 K/uL (140-440); RBC 4.76 M/ul (4.3-5.7); RDW 14.2 (10.5-15.0)
[2023-02-02 09:40] LABS: INR 2.14 (0.80-1.30); PROTIME 23.2 Sec (11.2-14.2)
[2023-02-02 09:44] LABS: ALBUMIN 3.5 g/dL (3.4-5.0); ANION GAP 13.6 (7-21); BILIRUBIN, TOTAL 0.6 ng/dL (0.2-1.0); BUN/CREATININE RATIO 16.04 (6.0-28.6); CALCIUM 8.7 mg/dL (8.5-10.1); CREATININE, SERUM 0.81 mg/dL (0.55-1.02); POTASSIUM 3.6 mmol/L (3.5-5.1)
[2023-02-02] MEDS ORDERED: DILTIAZEM 24HR360 MG PO (11:10)
[2023-02-02 11:35] VITALS: BP 129/100
--- NOTE | 2023-02-02 22:38 | EKG ---
[facility] [address] [facility] [place] [address] Signed Atrial fibrillation Rightward axis Cannot rule out Inferior infarct , age undetermined Abnormal ECG When compared with ECG of 12-DEC-2022 07:00, Atrial fibrillation has replaced Sinus rhythm QRS axis shifted right Confirmed by Jerardo Walker MD () on 02/02/2023 10:38:33 PM Electronically Signed By: JERARDO WALKER MD 02/02/23 2238 PATIENT NAME: NORA VARGAS Electrocardiogram DATE OF : 52 PHYSICIAN: JERARDO WALKER MD REPORT #: [id number] REPORT IS CONFIDENTIAL AND NOT TO BE RELEASED WITHOUT AUTHORIZATION
== END 2023-02-02 11:35 | disposition home or self-care (01) ==
LOC: ED 09:07
PROVIDERS: Emergency Medicine
DX: I48.91 Unspecified atrial fibrillation (principal); E11.40 Type 2 diabetes mellitus with diabetic neuropathy, unspecified; Z79.01 Long term (current) use of anticoagulants; Z87.891 Personal history of nicotine dependence; Z79.4 Long term (current) use of insulin; Z79.84 Long term (current) use of oral hypoglycemic drugs; Z79.85 Long-term (current) use of injectable non-insulin antidiabetic drugs; Z79.899 Other long term (current) drug therapy
CPT/HCPCS: 36415; 71045; 80053; 85025; 85610; 93005; 93010; 96374; 99285-25

== ENCOUNTER 2024-11-04 10:36 | Inpatient (IN) | payer MEDICARE ==
[~2024-11-04] VITALS: Ht 165.1 cm; Wt 74.5 kg
[~2024-11-04 10:36] MED LIST changes: +CIPROFLOXACIN500 MG PO; +DILTIAZEM 24HR360 MG PO; +DILTIAZEM ER360 MG PO; +ESTRADIOL42.5 GM PV; +FLUTICASONE PRO16 GM NAS; +LOSARTAN POTASS50 MG PO; -MAGNESIUM OXID420 MG PO; +MAGNESIUM500 MG PO; +NITROFURANTOIN100 M1 PO; +ONDANSETRON HCL4 MG PO; +ZYRTEC10 MG PO
[2024-11-04] MEDS ORDERED: PRADAXA150 MG PO (10:54)
[2024-11-04] MEDS ORDERED: DIGOXIN125 MCG PO (10:54)
[2024-11-04] MEDS ORDERED: VALSARTAN80 MG PO (10:55)
[2024-11-04] MEDS ORDERED: DILTIAZEM ER360 M1 PO (10:57)
[2024-11-04 11:08] LABS: BASOPHILS 0.3 % (0.1-1.2); EOSINOPHILS 0.7 % (0.7-5.8); LYMPHOCYTES 12.9 % (19.3-51.7); MCH 29.6 PG (25.6-32.2); MCHC 33.0 g/dL (32.2-35.5); MCV 89.8 fL (79.4-94.8); MONOCYTES 5.5 % (4.7-12.5); NEUTROPHILS 80.2 % (34.0-71.1); RBC 5.60 M/uL (3.93-5.22)
[2024-11-04] MEDS ORDERED: SODIUM CHLORIDE 0.9% 1,000 ML IV PRN (11:15)
[2024-11-04 11:18] LABS: BLOOD/HGB, URINE TRACE-I (Negative); KETONE, URINE TRACE (Negative); LEUK ESTERASE, URINE NEGATIVE (negative); NITRITE, URINE NEGATIVE (negative)
[2024-11-04 11:27] LABS: BACTERIA, URINE RARE /hpf (negative); CASTS, URINE HYALINE 1+ \\lpf; CRYSTALS, URINE NONE SEEN (0-1+); EPITHELIAL CELLS, URINE SQUAMOUS 4+ /lpf (0-1+); REFLEX CULTURE, URINE No (No)
[2024-11-04 11:29] LABS: ALT (SGPT) 24.0 U/L (14-59); AST (SGOT) 44.0 U/L (15-37); GLOMERULAR FILTRATION RATE,EST 73.0 mL/min (>60); PROTEIN, TOTAL 7.5 g/dL (6.4-8.2); UREA NITROGEN 36.0 mg/dL (7-18)
[2024-11-04] MEDS ORDERED: LOSARTAN POTASSIUM 100 MG TAB PO SCH (14:03)
[2024-11-04] MEDS ORDERED: LACTATED RINGER'S 1,000 ML IV SCH (14:15)
[2024-11-04 14:21] LABS: INFLUENZA B NAA NEGATIVE (NEGATIVE); RESPIRATORY SYNCYTIAL VIR NAA NEGATIVE (NEGATIVE)
--- NOTE | 2024-11-04 15:15 | NUR ---
REPORT RECIEVED FROM CARLOTA HILL. PATIENT TRANSFERED FROM [facility] TO [facility].
[2024-11-04 15:40] VITALS: BP 129/72
[2024-11-04] MEDS ORDERED: INSULIN LISPRO 100 UNIT/ML ML SUB-Q SCH (16:00)
--- NOTE | 2024-11-04 16:34 | NUR ---
PATIENT SITTING UP IN BED WITH HER AT BEDSIDE. ADMISSION ASSESSMENT AND HISTORY COMPLETED WITH HELP FROM PATIENT'S DUE TO PATIENT BEING NON VERBAL. PATIENT ABLE TO STATE HER FIRST NAME AND HER BIRTHDATE. CALL LIGHT AND PERSONAL BELONGINGS ARE WITHIN REACH.
[2024-11-04] MEDS ORDERED: SUDOGEST60 MG PO (16:44)
[2024-11-04 16:47] VITALS: BP 129/72
--- NOTE | 2024-11-04 16:58 | NUR ---
medications reconciled using pharmacy records and interview with
[2024-11-04] MEDS ORDERED: IBLOOD GLUCOSE TEST STRIP 1 EA TEST VI SCH (17:00)
[2024-11-04] MEDS ORDERED: LACTOBACILLUS RHAMNOSUS GG 1 EACH CAP PO SCH (17:23)
--- NOTE | 2024-11-04 17:40 | NUR ---
PATIENT MEDICATED PER EMAR. PATIENT SITTING UP IN BED WITH AT BEDSIDE FEEDING PATIENT DINNER. PATIENT TOELRATING WELL. SCARLETT ELLISON IN ROOM OBTAINING VITAL SIGNS.
[2024-11-04 17:46] VITALS: BP 140/69
--- NOTE | 2024-11-04 18:06 | EKG ---
[facility] [address] [facility] [place] [address] Signed Atrial fibrillation Cannot rule out Inferior infarct (cited on or before 02-FEB-2023) Possible Anterior infarct (cited on or before 02-FEB-2023) ST \T\ T wave abnormality, consider lateral ischemia Abnormal ECG When compared with ECG of 01-MAY-2023 19:32, Atrial fibrillation has replaced Atrial flutter QRS axis shifted right T wave inversion now evident in Anterolateral leads Confirmed by REMY OSBORNE MD ([id number]) on 11/04/2024 6:06:22 PM Electronically Signed By: REMY OSBORNE 11/04/24 180 PATIENT NAME: NORA VARGAS Electrocardiogram DATE OF : 52 PHYSICIAN: REMY OSBORNE REPORT #: [id number] REPORT IS CONFIDENTIAL AND NOT TO BE RELEASED WITHOUT AUTHORIZATION
--- NOTE | 2024-11-04 18:14 | NUR ---
PATIENT IV ABX COMPLETED. PATIENT SITTING UP AND FINISHED WITH DINNER. PATIENT'S AT BEDSIDE. PATIENT WITHOUT FURTHER NEEDS AT THIS TIME. CALL LIGHT AND PERSONAL BELONGINGS ARE WITHIN REACH. IV FLUSHED WITH 10 ML OF NS, DRESSING IS INTACT. IV FLUIDS INFUSING PER ORDER.
[2024-11-04 18:39] VITALS: BP 140/69
--- NOTE | 2024-11-04 19:30 | NUR ---
REPORT RECEIVED FROM CARLOTA FAM. PATIENT UPRIGHT IN BED, RESPIRATIONS EVEN AND UNLABORED. FAMILY AT BEDSIDE. PATIENT DID NOT ANSWER RN VERBALLY, HOWEVER SMILED TO RN TALKING. FAMILY STATES SHE DOES NOT ANSWER VERBALLY MUCH. NO FURTHER NEEDS IDENTIFIED, CALL LIGHT IN REACH
[2024-11-04] MEDS ORDERED: DIGOXIN 125 MCG TAB PO SCH (21:00)
[2024-11-04] MEDS ORDERED: FLECAINIDE ACETATE 50 MG TAB PO SCH (21:00)
[2024-11-04 21:07] VITALS: BP 131/80
[2024-11-04 21:09] VITALS: BP 131/80
--- NOTE | 2024-11-04 21:35 | NUR ---
PATIENT SITTING UPRIGHT IN BED, WATCHING TV. SCHEDULED MEDICATIONS GIVEN PER ORDER. OKAY TO GIVEN SCHEDULED PRADAXA AND COREG TOGETHER PER TELEPHARMACY. PATIENT DOES NOT ANSWER VERBALLY WHEN SPOKEN TO, FOLLOWS CUES, HOWEVER DOES NOT FOLLOW DIRECTIONS WHEN TAKING MEDICATIONS. PATIENT CHEWED CAPSULE MEDICATION DESPITE BEING INSTRUCTED NOT TO. GIVEN WATER TO DRINK, TOLERATED WELL. SHE CONFIRMED HER NAME WAS "ANTON" OTHERWISE DID NOT RESPOND TO OTHER ORIENTATION QUESTIONS WHICH THE FAMILY STATED SHE HAD BEEN DOING. ASSESSMENT COMPLETED, NO FURTHER NEEDS, CALL LIGHT IN REACH. BED ALARM ON.
--- NOTE | 2024-11-04 23:13 | NUR ---
ROUNDED ON PATIENT, PATIENT RESTING WITH EYES CLOSED, RESPIRATIONS EVEN AND UNLABORED. NO NEEDS IDENTIFIED, CALL LIGHT IN REACH
[2024-11-05] VITALS (12 sets, daily range): BP systolic 132–158; BP diastolic 61–91
--- NOTE | 2024-11-05 00:01 | NUR ---
ROUNDED ON PATIENT, NEW IVF BAG HUNG. PATIENT RESTING WITH EYES CLOSED, RESPIRATIONS EVEN AND UNLABORED. NO NEEDS IDENTIFIED, CALL LIGHT IN REACH. BED ALARM ON.
--- NOTE | 2024-11-05 01:57 | NUR ---
PATIENT RESTING IN BED, RESPIRATIONS EVEN AND UNLABORED. VS OBTAINED, INTAKE AND OUTPUT DOCUMENTED. PURWICK CHANGED, PERICARE PROVIDED, PILLOW PLACED UNDER LEFT HIP AND PATIENT REPOSITIONED. NO FURTHER NEEDS IDENTIFIED, CALL LIGHT IN REACH
--- NOTE | 2024-11-05 04:34 | NUR ---
ROUNDED ON PATIENT, PATIENT RESTING WITH EYES CLOSED, RESPIRATIONS EVEN AND UNLABORED. NO NEEDS IDENTIFIED, CALL LIGHT IN REACH
[2024-11-05 05:19] LABS: BASOPHILS 0.5 % (0.1-1.2); EOSINOPHILS 1.9 % (0.7-5.8); LYMPHOCYTES 18.0 % (19.3-51.7); MCH 29.0 PG (25.6-32.2); MCHC 32.2 g/dL (32.2-35.5); MCV 89.9 fL (79.4-94.8); MONOCYTES 8.5 % (4.7-12.5); NEUTROPHILS 70.7 % (34.0-71.1); RBC 5.04 M/uL (3.93-5.22)
[2024-11-05 05:32] LABS: GLOMERULAR FILTRATION RATE,EST 76.0 mL/min (>60); UREA NITROGEN 31.0 mg/dL (7-18)
--- NOTE | 2024-11-05 06:02 | NUR ---
VS OBTAINED AND RECORDED, INTAKE AND OUTPUT DOCUMENTED, PATIENT MORE ALERT THIS MORNING, STATED HER NAME BUT CONFUSED ON PLACE AND UNABLE TO ANSWER OTHER ORIENTATION QUESTIONS. SOILED BRIEF AND CHUX PAD UNDER HER, CHUX PAD CHANGED, BRIEF CHANGED, NEW PURWICK PLACED, PAUL CARE PROVIDED. PATIENT REPOSITIONED, NO FURTHER NEEDS, CALL LIGHT IN REACH, BED ALARM ON.
--- NOTE | 2024-11-05 07:01 | NUR ---
RECIEVED REPORT FROM RN'S EMELY AND MARY. PT IS RESTING IN BED WITH EYES CLOSED, RR EVEN AND UNLABORED. CALL LIGHT AND PERSONAL BELONGINGS WITHIN REACH.
--- NOTE | 2024-11-05 07:15 | NUR ---
RECIEVED REPORT FROM RN'S SY. PT RESTING IN BED WITH EYES CLOSED. RR EVEN AND UNLABORED, CALL LIGHT AND PERSONAL BELONGINGS ARE WITHIN REACH.
[2024-11-05] MEDS ORDERED: INSULIN LISPRO 100 UNIT/ML ML SUB-Q SCH (08:00)
--- NOTE | 2024-11-05 08:09 | NUR ---
PATIENT IN BED AT THIS TIME. AGRICULTURAL EDUCATION PROFESSOR CHARTED HOURLY ROUNDS AND BLOOD SUGAR. CALL LIGHT WITHIN REACH, NO FURTHER NEEDS.
--- NOTE | 2024-11-05 08:15 | NUR ---
PT LAYING IN BED WITH EYES CLOSED, RR EVEN AND UNLABORED. CALL LIGHT AND PERSONAL BELONGINGS ARE WITHIN REACH.
[2024-11-05] MEDS ORDERED: PANTOPRAZOLE SODIUM 40 MG TABEC PO SCH (09:00)
[2024-11-05] MEDS ORDERED: DIGOXIN 125 MCG TAB PO SCH (09:00)
[2024-11-05] MEDS ORDERED: LEVOTHYROXINE SODIUM 112 MCG TAB PO SCH (09:00)
[2024-11-05] MEDS ORDERED: POTASSIUM CHLORIDE 40 MEQ,LIDOCAINE HCL 1% 40 MG in DEXTROSE 5% 250 ML IV ONE (09:15)
[2024-11-05] MEDS ORDERED: MAGNESIUM SULFATE 2 GM/50 ML BAG IV SCH (09:30)
--- NOTE | 2024-11-05 09:45 | NUR ---
CARLOTA COLE IS IN THE ROOM AND ADMINISTERING MORNING MEDICATIONS AT THIS TIME.
--- NOTE | 2024-11-05 10:05 | NUR ---
PT SITTING UP IN BED TALKING VISITORS, CARLOTA COLE IN ROOM. CALL LIGHT AND PERSONAL BELONGINGS ARE WITHIN REACH.
--- NOTE | 2024-11-05 10:05 | NUR ---
PT SITTING UP IN BED, FAMILY AT BEDSIDE. PT JUST FINISHED WORKING WITH PT/OT. COLOR MATCHER IN TO VISIT WITH FAMILY. CALL LIGHT WITHIN REACH AND BED ALARM ON.
--- NOTE | 2024-11-05 10:36 | NUR ---
CHART FAXED TO [facility] AND [facility]. INTO SEE PATIENT. PERSONAL HEALTH INFORMATION REVIEWED. PATIENT LIVES IN A HOUSE WITH HER WHO IS HER PRIMARY GROUND NUCLEAR WEAPONS ASSEMBLY OFFICER. SHE MOSTLY USES HER WHEELCHAIR AND HAS A WALKER. DOES NOT USE OXYGEN OR CPAP. PATIENT DENIES ANY DIFFCULTY PAYING UTLITIES OR OBTAINING FOOD. PATIENT FAMILY AND PATIENT WOULD LIKE TO GO TO [facility] BECAUSE OF PREVIOUS STAY THERE IF POSSIBLE.
--- NOTE | 2024-11-05 10:45 | NUR ---
IN PT ROOM WITH RN CARMELA, AND PT'S AND DAUGHTER. PT IS SITTING UP IN BED, RR EVEN AND UNLABORED. PT IS NOT RESPONDING TO THIS RN AT THIS TIME. FULL ASSESSMENT COMPLETE AND DOCUMENTED IN THE CHART. PT DID NOT APPEAR TO BE TAKING FULL, DEEP BREATHS DURING AUSCULTATION. PT HAS CHRONIC NEUROPATHY AT BASELINE, PER PT'S . ULCER ON RIGHT BUTTOCKS AND IS OPEN TO AIR WITH SCANT AMOUNT OF SEROSANGINEOUS DRAINAGE. PT IS ON ROOM AIR AND ON TELE #6, IRREGULAR HEART TONES UPON AUSCULATION. WOUND CONSULT PENDING. PUREWICK IN PLACE. CALL LIGHT AND PERSONAL BELONGINGS ARE WITHIN REACH.
--- NOTE | 2024-11-05 10:56 | NUR ---
[facility] ACCEPTED PATIENT ON SATURDAY.
--- NOTE | 2024-11-05 11:00 | NUR ---
PATIENT IN BED AT THIS TIME. PLATE SHOP HELPER CHARTED VITALS AND I7O'S. CALL LIGHT WITHIN REACH, NO FURTHER NEEDS.
--- NOTE | 2024-11-05 11:02 | NUR ---
UR CLINICAL REVIEW: 2MN ERNST, MEETS INPT FOR CELLULITIS IV ANTIBIOTICS, WOUND CARE, IV FLUIDS MEDICARE INPT 10/19/2024 @ 1410 ORDER MATCHES REG NO AUTH REQUIRED PER MEDICARE RULES DC TO SNF WHEN MEDICALLY READY, LIKELY SATURDAY DC.
--- NOTE | 2024-11-05 11:19 | NUR ---
PT IS RESTING IN BED WITH EYES CLOSED, IS SITTING AT BEDSIDE. RR EVEN AND UNLABORED. CALL LIGHT AND PERSONAL BELONGINGS ARE WITHIN REACH.
--- NOTE | 2024-11-05 11:50 | NUR ---
PT NOT AVAILABLE FOR VISIT. PROVIDED PRAYER.
[2024-11-05] MEDS ORDERED: PHARMACY RENAL DOSE ADJUSTMENT 1 DOSE MISC PO SCH (12:00)
--- NOTE | 2024-11-05 12:28 | NUR ---
PATIENT LAYING IN BED, AFTERNOON NANNY'S BAKARI CHECKED BLOOD SUGAR. CALL LIGHT LEFT WITHIN REACH, PATIENT DID NOT NEED ANYTHING ELSE.
--- NOTE | 2024-11-05 13:00 | NUR ---
PT RESTING IN BED WITH EYES CLOSED, SITTING AT BEDSIDE. RR EVEN AND UNLABORED. CALL LIGHT AND PERSONAL BELONGINGS ARE WITHIN REACH.
--- NOTE | 2024-11-05 13:05 | NUR ---
NOTIFIED OF PATIENT FAMILY WANTING AN MRI. STATED HE WOULD PUT IN AN ORDER FOR ONE. NO FURTHER ORDERS AT THIS TIME. CALL ENDED.
--- NOTE | 2024-11-05 13:51 | NUR ---
LEFT MEDIAL BUTTOCKS HAS UNSTAGABLE ULCER. 2.7CM X 1.4CM WITH STABLE ESCHAR FROM 5 O'CLOCK TO 9 O'CLOCK. NO ODOR AND SCANT SEROUS EXUDATE. BASE FROM 9 O'CLOCK TO 5 O' CLOCK IS PINK, GRANULATING. EDGES ARE VIABLE. PERIWOUND PINK. RIGHT NEDIAL BUTTOCKS HAS A STAGE 2 ULCER. BASE IS PINK, NO ODOR OR EXUDATE. LEFT MEDIAL BUTTOCKS ULCER- CLEAN WITH WOUND CLEANSER, PLACE IODOFLEX ON BASE, COVER WITH GENTLE BORDER PINK FOAM. RIGHT MEDIAL BUTTOCKS ULCER- CLEAN WITH WOUND CLEANSER, PLACE IODOFLEX ON BASE AND COVER WITH GENTLE BORDER PINK FOAM. CLEAN AND CHANGE DRESSINGS EVERY 3 DAYS AND PRN.USE BED POSITIONING AND PILLOWS TO KEEP PT OFF OF HER BUTTOCKS TO ALLOW CIRCULATION. MAY USE CAVILON TO THE AREA A MOISTURE BARRIER. USE OF A PUREWICK DEVICE IS RECOMMENDED TO KEEP MOISTURE AWAY FROM WOUNDS.
[2024-11-05] MEDS ORDERED: LIDOCAINE 2% VISCOUS 6 ML SYR TOP ONE (14:15)
--- NOTE | 2024-11-05 15:20 | NUR ---
PT BEING TAKEN TO IMAGING FOR MRI AT THIS TIME. BED LINENS CHANGED. PT'S REMAINS IN ROOM.
--- NOTE | 2024-11-05 15:49 | NUR ---
TELETYPIST'S AMAIRANI AND THIEN CHANGED AND PLACED A NEW PUREWICK. PATIENT LEFT WITH CALL LIGHT IN REACH, NO FURTHER NEEDS.
--- NOTE | 2024-11-05 16:14 | NUR ---
PT BACK FROM CT. FLUSHED EACH IV SITE WITH 10 ML NORMAL SALINE. ASKED PATIENT, "ARE YOU HAVING ANY PAIN?" PT SHOOK HEAD NO. PT NOT RESPONDING TO ANY OTHER PROMPTS. FLOATED PT WITH TWO PILLOWS UNDER EACH HIP AND SIDE. PERICARE DONE AND NEW PUREWICK AND BRIEF PLACED. PT REMAINS ON TELE #6 IN AFIB. DRESSINGS TO THE COCCYX/BUTTOCKS REMAIN CLEAN, DRY AND INTACT. PT REMAINS AT BEDSIDE. CALL LIGHT AND PERSONAL BELONGINGS ARE WITHIN REACH.
--- NOTE | 2024-11-05 18:02 | NUR ---
PATIENT IS LYING IN BED WITH HOB ELEVATED. PATIENT WITH EYES OPEN AND RESPIRATIONS ARE EVEN AND UNLABORED. DINNER TRAY REMOVED AT THIS TIME. CALL LIGHT AND PERSONAL BELONGINGS ARE WITHIN REACH.
--- NOTE | 2024-11-05 18:37 | NUR ---
PATIENT IN BED AT THIS TIME. APPLICATION INTEGRATION ENGINEER CHARTED VITALS AND I&O'S. CALL LIGHT WIHTIN REACH, NO FURTHER NEEDS.
--- NOTE | 2024-11-05 19:25 | NUR ---
RECEIVED REPORT FROM DAYSHIFT RN. RESPIRATIONS EVEN AND UNLABORED, RESTING WITH EYES CLOSED. NO NEEDS IDENTIFIED, CALL LIGHT IN REACH
--- NOTE | 2024-11-05 21:26 | NUR ---
PATIENT LAYING IN BED. PATIENTS BRIEF AND PURWICK WAS CHANGED BY THIS HIMS CLERK AND HIMS CLERKTresa CRUZ. PATIENTS CALL LIGHT IS WITHIN REACH AND NO FURTHER NEEDS AT THIS TIME.
--- NOTE | 2024-11-05 21:51 | NUR ---
ASSESSMENT COMPLETE, VS OBTAINED AND RECORDED, SCHEDULED MEDICATIONS ADMINISTERED PER ORDER. PATIENT TOLERATED ORAL MEDICATIONS WELL, DID NOT ANSWER RN ORIENTATION QUESTIONS BUT WAS ALERT AND ANSWERED YES AND NO QUESTIONS AND STATED HER NAME. NO OTHER NEEDS IDENTIFIED, CALL LIGHT IN REACH
--- NOTE | 2024-11-05 23:14 | NUR ---
ROUNDED ON PATIENT, PATIENT RESTING WITH EYES CLOSED, RESPIRATIONS EVEN AND UNLABORED, NO NEEDS IDENTIFIED, CALL LIGHT IN REACH
[2024-11-06] VITALS (11 sets, daily range): BP systolic 136–171; BP diastolic 75–91
--- NOTE | 2024-11-06 01:33 | NUR ---
pt RESTING IN THE BED. pt DENIES ANY OTHER NEEDS AT THIS TIME. CALL LIGHT WITHIN REACH.
--- NOTE | 2024-11-06 01:45 | NUR ---
SALES AGENT PEST CONTROL SERVICE OBTAINED VITALS AND I&O. PUREWICK CANNISTER EMPTIED. PT STATES NO NEEDS AT THIS TIME. CALL LIGHT WITHIN REACH.
--- NOTE | 2024-11-06 02:12 | NUR ---
ROUNDED ON PATIENT, PATIENT RESTING WITH EYES CLOSED, RESPIRATIONS EVEN AND UNLABORED. NO NEEDS IDENTIFIED, CALL LIGHT IN REACH
--- NOTE | 2024-11-06 05:35 | NUR ---
PATIENT ALERT AND ORIENTED RN WALKED INTO ROOM, RESPIRATIONS EVEN AND UNLABORED AND STATED "GOOD MORNING!" SHE ANSWERED ALL ORIENTATIONS CORRECTLY EXCEPT FOR THE DATE. SHE IS SLOW TO RESPOND. CONVERSATIONAL, STATES SHE FEELS FINE AND ASKED FOR MORE WATER TO DRINK. SHE DENIES ANY FURTHER NEEDS, CALL LIGHT IN REACH
--- NOTE | 2024-11-06 05:41 | NUR ---
MACHINE BRUSHER OBTAINED VITALS AND I&O. PT STATES NO NEEDS AT THIS TIME. CALL LIGHT WITHIN REACH AND BED ALARM ON.
--- NOTE | 2024-11-06 07:10 | NUR ---
RECIEVED REPORT FROM RN'S EMELY AND MARY. PT IS RESTING IN BED WITH HOB ELEVATED. RR EVEN AND UNLABORED. CALL LIGHT AND PERSONAL BELONGINGS ARE WITHIN REACH.
--- NOTE | 2024-11-06 07:42 | NUR ---
PT IS LAYING IN BED WITH HOB ELEVATED. PT IS ALERT CALM. PT WAS UNABLE TO ANSWER ORIENTATION QUESTIONS. BOTH IV'S FLUSHED WITH 10 ML NORMAL SALINE. ASSESSMENT COMPLETED AND DOCUMENTED IN CHART. LUNGS DIM THROUGHOUT. IRREGULAR HEART TONES UPON AUSCULTATION. PT IS ON TELE #6 IN AFIB. DRESSINGS TO COCCYX/ BUTTOCKS ARE CLEAN, DRY AND INTACT. PT REPOSITIONED AND FLOATED ON PILLOWS. WAFFLE MATTRESS REMAINS IN PLACE. PUREWICK DRAINING YELLOW URINE. PT STATED "NO" WHEN ASKED IF SHE NEEDED ANYTHING. PT STATED "NO" WHEN ASKED IF SHE WAS HAVING ANY PAIN. CALL LIGHT AND PERSONAL BELONGINGS ARE WITHIN REACH. TV IS ON.
[2024-11-06 08:19] LABS: BASOPHILS 0.5 % (0.1-1.2); EOSINOPHILS 2.2 % (0.7-5.8); LYMPHOCYTES 13.3 % (19.3-51.7); MCH 29.6 PG (25.6-32.2); MCHC 33.0 g/dL (32.2-35.5); MCV 89.5 fL (79.4-94.8); MONOCYTES 6.1 % (4.7-12.5); NEUTROPHILS 77.7 % (34.0-71.1); RBC 5.07 M/uL (3.93-5.22)
--- NOTE | 2024-11-06 08:28 | NUR ---
SPOKE WITH (TENISHA) ABOUT PRIVATE PAY FOR WC VAN. AGREEABLE. WC VAN SCHEDULED FOR 10:00 AM ON 11/09/24. NO FUTHER CM NEEDS AT THIS TIME.
[2024-11-06 08:42] LABS: ALT (SGPT) 19.0 U/L (14-59); AST (SGOT) 24.0 U/L (15-37); GLOMERULAR FILTRATION RATE,EST 96.0 mL/min (>60); PROTEIN, TOTAL 6.5 g/dL (6.4-8.2); UREA NITROGEN 18.0 mg/dL (7-18)
--- NOTE | 2024-11-06 09:10 | NUR ---
PATIENT IS LYING IN BED WITH HOB ELEVATED. PATIENT WITH EYES OPEN AND RESPIRATIONS ARE EVEN AND UNLABORED. PATIENT IS SITTING IN THE RECLINER AT BEDSIDE. SCARLETT CLEMENT IS IN THE ROOM AT THIS TIME. CALL LIGHT AND PERSONAL BELONGINGS ARE WITHIN REACH.
--- NOTE | 2024-11-06 09:18 | NUR ---
PATIENT IS IN HER BED AT THIS TIME, IN ROOM WITH PATIENT, INCLINED RAILWAY OPERATOR CHARTED VITALS AND I&O'S, CALL LIGHT WITH IN REACH AND NOTHING ELSE NEEDED AT THIS TIME.
--- NOTE | 2024-11-06 09:43 | NUR ---
PHYSICAL THERAPY IS IN THE ROOM AT THIS TIME. IV FLUSHED WITH 10 ML NORMAL SALINE AND IS SALINE LOCKED. PATIENT IS SITTING ON THE COUCH. PHYSICAL THERAPY STATED NO FURTHER NEEDS AT THIS TIME. CALL LIGHT WITHIN REACH.
--- NOTE | 2024-11-06 10:18 | NUR ---
PATIENT IS SITTING UPRIGHT IN THE CHAIR WITH BILATERAL LOWER EXTREMITIES ELEVATED. IV IN THE RIGHT HAND FLUSHED WITH 10 ML NORMAL SALINE. LR IS INFUSING AT 125 ML/HR. BED LINENS CHANGED WITH SCARLETT NEUMANN. TV IS ON. PATIENT CONNECTED TO THE [employer] [facility] CALL LIGHT AND PERSONAL BELONGINGS ARE WITHIN REACH.
--- NOTE | 2024-11-06 10:42 | NUR ---
VISITED DURING SPIRITUAL CARE ROUNDS. PT SUPPORTED BY IN ROOM; NO IMMEDIATE NEEDS. MEDICINE MAN PROVIDED SUPPORTIVE PRESENCE, HOSPITALITY, PRAYER. PT AND EXPRESSED GRATITUDE, BRET SOURCE OF STRENGTH.
--- NOTE | 2024-11-06 11:00 | NUR ---
PATIENT IS SITTING IN THE CHAIR WITH BILATERAL LOWER EXTREMITIES ELEVATED. PATIENT WITH EYES OPEN AND RESPIRATIONS ARE EVEN AND UNLABORED. PATIENT IS SITTING ON THE COUCH. OCCUPATIONAL THERAPY IS IN THE ROOM. MEDICATION ADMINISTRATION NOT COMPLETE DUE TO SAFETY CONCERN. PATIENT UNABLE TO FOLLOW DIRECTIONS. PATIENT HELD ONTO WATER FOR SEVERAL MINUTES. OCCUPATIONAL THERAPY REMAINS IN THE ROOM AFTER THIS RN LEFT. CALL LIGHT AND PERSONAL BELONGINGS ARE WITHIN REACH.
--- NOTE | 2024-11-06 12:03 | NUR ---
NOTIFIED OF PATIENT UNABLE TO FOLLOW DIRECTIONS TO SAFELY TAKE MORNING MEDICATIONS. MD GAVE ONE TIME VERBAL ORDER FOR IV PUSH OF CARDIZEM 60 MG. WITH NO FURTHER ORDERS AT THIS TIME. CALL ENDED
--- NOTE | 2024-11-06 13:17 | NUR ---
PT LAYING IN BED WITH HOB ELEVATED. SITTING AT BEDSIDE. RR EVEN AND UNLABORED, CALL LIGHT AND PERSONAL BELONGINGS ARE WITHIN REACH.
--- NOTE | 2024-11-06 13:45 | NUR ---
DC REVIEW: IV FLUIDS, IV ANTIBIOTICS, WOUND CARE DC TO [facility] FOR [facility] ON SATURDAY ADD: 11/09/24
--- NOTE | 2024-11-06 14:05 | NUR ---
PATIENT IS SITTING IN THE CHAIR WITH BILATERAL LOWER EXTREMITIES ELEVATED. PATIENT WITH EYES OPEN AND RESPIRATIONS ARE EVEN AND UNLABORED. CALL LIGHT AND PERSONAL BELONGINGS ARE WITHIN REACH.
--- NOTE | 2024-11-06 15:53 | NUR ---
ASSISTED PT BACK TO BED WITH PHYSICAL THERAPIST VILLA AND CARLOTA CASEY. NEW PUREWICK AND BRIEF PLACED. PERICARE DONE. SKIN VISUALIZED, DRESSINGS CLEAN, DRY, INTACT. PT IS ON TELE #6 AND IS IN AFIB. WHEN ASKED IF SHE WAS HAVING ANY PAIN, PT SHOOK HER HEAD NO. PT ORIENTED TO SELF, BUT UNABLE TO ANSWER ANY OTHER ORIENTATION QUESTIONS AT THIS TIME. IV SITES REMAIN CLEAN, DRY AND INTACT. LR IS INFUSING AT 125 ML/HR IN THE LEFT FOREARM. PT'S RUT IS SITTING IN CHAIR AT BEDSIDE. PT AND DENY ANY OTHER NEEDS AT THIS TIME. CALL LIGHT AND PERSONAL BELONGINGS ARE WITHIN REACH.
--- NOTE | 2024-11-06 16:04 | NUR ---
PATIENT IS LYING IN BED WITH HOB ELEVATED. PATIENT WITH EYES OPEN AND RESPIRATIONS ARE EVEN AND UNLABORED. PATIENT IS WATCHING TV. PATIENT IS SITTING IN THE CHAIR AT BEDSIDE AND ON THE PHONE. CALL LIGHT AND PERSONAL BELONGINGS ARE WITHIN REACH.
--- NOTE | 2024-11-06 16:26 | NUR ---
NOTIFIED DR. DAIGLE OF PT POTASSIUM OF 3.1. STATED HE WOULD PUT IN ORDERS FOR POTASSIUM REPLACEMENT. CARLOTA MCNEAL, MENTIONED TO ABOUT CHECKING MAGNESIUM. STATED HE WOULD PUT IN ORDERS.
[2024-11-06] MEDS ORDERED: POTASSIUM CHLORIDE 40 MEQ,LIDOCAINE HCL 1% 40 MG in DEXTROSE 5% 250 ML IV ONE (16:30)
[2024-11-06] MEDS ORDERED: MAGNESIUM SULFATE 2 GM/50 ML BAG IV SCH (16:45)
--- NOTE | 2024-11-06 17:30 | NUR ---
NOTIFIED OF MOST RECENT BLOOD PRESSURE. STATED HE WOULD PUT IN ORDERS. NO NEW ORDERS AT THIS TIME.
[2024-11-06] MEDS ORDERED: LOSARTAN POTASSIUM 50 MG TAB PO ONE (18:00)
--- NOTE | 2024-11-06 19:25 | NUR ---
REPORT RECEIVED FROM CARMELA VAN. pt RESTING IN THE BED. BOARD UPDATED. NO OTHER NEEDS AT THIS TIME. CALL LIGHT WITHIN REACH.
--- NOTE | 2024-11-06 21:50 | NUR ---
ASSESSMENT AND VITAL SIGNS DONE. SCHEDULED MEDS ADMINISTERED. BG CHECKED WITH A RESULTS OF 243. SS INSULIN ADMINISTERED. TELE #6 ON. pt DENIES ANY OTHER NEEDS AT THIS TIME. CALL LIGHT WITHIN REACH.
--- NOTE | 2024-11-06 23:30 | NUR ---
pt RESTING IN THE BED. pt TELE STICKER REPLACED. pt REMINDED NOT TO MESS WITH THE TELE. pt DENIES ANY OTHER NEEDS AT THIS TIME. CALL LIGHT WITHIN REACH.
[2024-11-07] VITALS (11 sets, daily range): BP systolic 124–163; BP diastolic 52–98
--- NOTE | 2024-11-07 01:33 | NUR ---
pt RESTING IN THE BED. pt DENIES ANY NEEDS AT THIS TIME. CALL LIGHT WITHIN REACH.
--- NOTE | 2024-11-07 03:05 | NUR ---
IN RM TO HANG A NEW BAG OF FLUIDS. pt RESTING IN THE BED. IVF INFUSING PER ORDER. pt DENIES ANY OTHER NEEDS AT THIS TIME CALL LIGHT WITHIN REACH.
--- NOTE | 2024-11-07 05:27 | NUR ---
KILN DRAWER OBTAINED VITALS AND I&O. PUREWICK CANNISTER EMPTIED. PT STATES NO NEEDS AT THIS TIME. CALL LIGHT WITHIN REACH.
[2024-11-07 05:55] LABS: BASOPHILS 0.4 % (0.1-1.2); EOSINOPHILS 2.3 % (0.7-5.8); LYMPHOCYTES 15.4 % (19.3-51.7); MCH 29.5 PG (25.6-32.2); MCHC 33.6 g/dL (32.2-35.5); MCV 87.7 fL (79.4-94.8); MONOCYTES 6.9 % (4.7-12.5); NEUTROPHILS 74.6 % (34.0-71.1); RBC 4.88 M/uL (3.93-5.22)
[2024-11-07 06:14] LABS: ALT (SGPT) 12.0 U/L (14-59); AST (SGOT) 21.0 U/L (15-37); GLOMERULAR FILTRATION RATE,EST 100.0 mL/min (>60); PHOSPHORUS, INORGANIC 2.5 mg/dL (2.5-4.9); PROTEIN, TOTAL 5.9 g/dL (6.4-8.2); UREA NITROGEN 15.0 mg/dL (7-18)
--- NOTE | 2024-11-07 07:05 | NUR ---
RECIEVED REPORT FROM CARLOTA STALEY. PT IS LAYING IN BED WITH EYES CLOSED, RR EVEN AND UNLABORED. CALL LIGHT AND PERSONAL BELONGINGS ARE WITHIN REACH.
--- NOTE | 2024-11-07 07:42 | NUR ---
PATIENT IN BED AT THIS TIME. MUSCULOSKELETAL PHYSICIAN CHARTED BLOOD SUGAR AND HOURLY ROUNDS. CALL LIGHT WITHIN REACH, NO FURTHER NEEDS.
[2024-11-07] MEDS ORDERED: MAGNESIUM SULFATE 2 GM/50 ML BAG IV SCH (08:00)
[2024-11-07] MEDS ORDERED: POTASSIUM CHLORIDE 10 MEQ TABCR PO ONE (09:00)
--- NOTE | 2024-11-07 09:15 | NUR ---
PT LAYING IN BED WITH EYES OPEN. IS AT BEDSIDE. FULL ASSESSMENT COMPLETE AND DOCUMENTED IN CHART. LUNGS WERE CLEAR IN UPPER LOBES AND DIM IN THE BASES BILATERALLY. [facility] DRESSING TO COCCYX/BUTTOCKS IS CLEAN, DRY AND INTACT. PT TURNED AND FLOATED ON PILLOWS. PT UNABLE TO ANSWER ORIENTATION QUESTIONS AT THIS TIME. WAFFLE MATTRESS AND PUREWICK IN PLACE. 0800 AND 0900 MEDICATIONS ADMINISTERED PER THE EMAR WITH CHOCOLATE PUDDING AND WATER WITH EACH BITE. PT REMAINS ON 60 GRAM CARB DIET AND NEEDS ASSISTANCE WITH FEEDING. PT AND FAMILY STATED NO FURTHER NEEDS AT THIS TIME. CALL LIGHT AND PERSONAL BELONGINGS WITHIN REACH.
[2024-11-07] MEDS ORDERED: POTASSIUM CHLORIDE 20 MEQ/15 ML CUP PO ONE (09:45)
--- NOTE | 2024-11-07 10:44 | NUR ---
NOTIFIED OF PATIENT HOLDING ONTO LIQUIDS WHEN THIS RN TRIED TO ADMINISTER LIQUID POTASSIUM. MD STATED HE WOULD PUT IN IV POTASSIUM CHLORIDE. IV IN THE LEFT FOREARM INFILTRATED. IV REMOVED WITH THE CATHETER TIP INTACT. PATIENT IS LYING IN BED WITH HOB ELEVATED. PATIENT IS IN THE ROOM. CALL LIGHT AND PERSONAL BELONGINGS ARE WITHIN REACH.
--- NOTE | 2024-11-07 11:12 | NUR ---
PT LAYING IN BED WITH EYES CLOSED. HOB IS ELEVATED, RR IS EVEN AND UNLABORED. SITTING AT BEDSIDE. CALL LIGHT AND PERSONAL BELONGINGS ARE WITHIN REACH.
--- NOTE | 2024-11-07 11:52 | NUR ---
PATIENT IN BED AT THIS TIME. METAL SMELTER CHARTED BLOOD SUGAR AND HOURLY ROUNDS. CALL LIGHT WITHIN REACH, NO FURTHER NEEDS.
--- NOTE | 2024-11-07 13:00 | NUR ---
PT IN BED WITH EYES CLOSED. HOB IS ELEVATED AND RR EVEN AND UNLABORED. SITTING AT BEDSIDE. CALL LIGHT AND PERSONAL BELONGINGS WITHIN REACH.
--- NOTE | 2024-11-07 14:14 | NUR ---
PT RESTING IN BED WITH EYES CLOSED. RR EVEN AND UNLABORED, SITTING AT BEDSIDE. CALL LIGHT AND PERSONAL BELONGNGS ARE WITHIN REACH.
--- NOTE | 2024-11-07 14:53 | NUR ---
PATIENT IN BED AT THIS TIME. EMBEDDED SYSTEMS DEVELOPER CHARTED VITALS AND I&O'S. THIS EMBEDDED SYSTEMS DEVELOPER AND CARLOTA COLE CHANGED PATIENTS PUREWICK AND PROVIDED PATIENT WITH NEW BRIEF AND NEW CHUX. CALL LIGHT WITHIN REACH, NO FURTHER NEEDS AT THIS TIME.
--- NOTE | 2024-11-07 15:18 | NUR ---
PATIENT IS LYING IN BED WITH EYES CLOSED AND RESPIRATIONS ARE EVEN AND UNLABORED. CALL LIGHT AND PERSONAL BELONGINGS ARE WITHIN REACH.
[2024-11-07] MEDS ORDERED: POTASSIUM CHLORIDE 40 MEQ,LIDOCAINE HCL 1% 40 MG in DEXTROSE 5% 250 ML IV ONE (16:15)
--- NOTE | 2024-11-07 16:39 | NUR ---
PATIENT IN BED AT THIS TIME. VP CONSTRUCTION CHARTED HOURLY ROUNDS AND BLOOD SUGAR. CALL LIGHT WITHIN REACH, NO FURTHER NEEDS.
[2024-11-07] MEDS ORDERED: GLUCAGON,HUMAN RECOMBINANT 1 MG/ML VIAL SUB-Q PRN (16:45)
[2024-11-07] MEDS ORDERED: DEXTROSE 50% 50 ML SYR IV PRN ×2 (16:45)
[2024-11-07] MEDS ORDERED: IBLOOD GLUCOSE TEST STRIP 1 EA TEST XX PRN (16:45)
[2024-11-07] MEDS ORDERED: DEXTROSE 5% 1,000 ML IV PRN (16:45)
--- NOTE | 2024-11-07 16:51 | NUR ---
PT IS IN BED WITH EYES OPEN. IV SITE IS CLEAN DRY AND INTACT. PT IS ON TELE #6 IN AFIB. PT WAS ABLE TO STATE HER NAME, BUT UNABLE TO ANSWER ANY OTHER ORIENTATION QUESTIONS AT THIS TIME. WHEN ASKED IF SHE HAD ANY PAIN, PT SHOOK HER HEAD "NO". PT IS ON ROOM AIR. CALL LIGHT AND PERSONAL BELONGINGS ARE WITHIN REACH.
--- NOTE | 2024-11-07 18:22 | NUR ---
PATIENT IN BED AT THIS TIME. THIS ED EDUCATIONAL AIDE ASSISTED PATIENT WITH EATING AND HARTED I&O'S. CALL LIGHT WITHIN REACH, NO FURTHER NEEDS.
--- NOTE | 2024-11-07 18:26 | NUR ---
PATIENT IS LYING IN BED WITH HOB ELEVATED. PATIENT WITH EYES OPEN AND RESPIRATIONS ARE EVEN AND UNLABORED. CALL LIGHT AND PERSONAL BELONGINGS ARE WITHIN REACH.
--- NOTE | 2024-11-07 19:00 | NUR ---
REPORT RECIEVED FROM CARLOTA CASEY. PATIENT RESTING IN BED WITH HOB ELEVATED. PATIENT WATCHING TV AND IS WITHOUT ANY NEEDS AT THIS TIME. CALL LIGHT AND PERSONAL BELONGINGS ARE WITHIN REACH.
--- NOTE | 2024-11-07 20:43 | NUR ---
PATIENT SITTING UP IN BED WATCHING TV. NEW BAG OF LR INFUSING PER ORDER. CALL LIGHT AND PERSONAL BELONGINGS ARE WITHIN REACH.
--- NOTE | 2024-11-07 21:18 | NUR ---
PATIENT WAS SITTING UPRIGHT AND LEANING TO THE LEFT WHEN I ENTERED ROOM. I GOT VITAL SIGNS AND CHARTED THEM. CARLOTA TAVERAS CAME IN AND HELPED ME REPOSITION PATIENT IN BED. AFTER REPOSITIONING SCARLETT PINK GOT BLOOD GLUCOSE AND CHARTED IT. I TIDIED ROOM. NO FURTHER NEEDS AND CALL LIGHT IN REACH.
--- NOTE | 2024-11-07 21:45 | NUR ---
PATIENT MEDICATED PER EMAR. PATIENT PILLS CRUSHED IN APPLSAUCE. PRESEDEX NOT ABLE TO BE CRUSHED PER TELE PHARMACY. EDUCATED PATIENT TO SWALLOW AND NOT TO CHEW CAPSULES. PATIENT NODDED HER HEAD "YES" WITH UNDERSTANDING. PATIENT SWALLOWED FIRST CAPSULE WITHOUT COMPLICATIONS, 2ND CAPSULE PATIENT CHEWED UP. ATTEMPTED TO STOP PATIENT FROM CHEWING MEDICATION, BUT PATIENT CONTINUED TO CHEW AND WOULDN'T SPIT MEDICATION OUT.
--- NOTE | 2024-11-07 22:10 | NUR ---
PATIENT ASSESMENT COMPLETED. PATIENT HOB LOWERED. PATIENT WITH VERBAL "YEAH" WHEN ASKED IF SHE WAS COMFORTABLE. PATIENT WITHOUT FURTHER NEEDS AT THIS TIME. IV FLUIDS INFUSING PER ORDER. CALL LIGHT AND PERSONAL BELONGINGS ARE WITHIN REACH.
--- NOTE | 2024-11-07 23:15 | NUR ---
PATIENT RESTING IN BED, TELE LEADS REAPPLIED. CALL LIGHT AND PERSONAL BELONGINGS ARE WITHIN REACH.
[2024-11-08] VITALS (12 sets, daily range): BP systolic 131–173; BP diastolic 62–85
--- NOTE | 2024-11-08 01:08 | NUR ---
PATIENT RESTING IN BED WITH HER EYES CLOSED AND HER MOUTH OPEN. EVEN AND UNLABORED RESPIRATIONS NOTED. CALL LIGHT AND PERSONAL BELONGINGS ARE WITHIN REACH.
--- NOTE | 2024-11-08 02:19 | NUR ---
FRESH PUREWICK PLACED. WOUND CARE COMPLETED PER ORDER. PATIENT PREVIOUS PUREWICK MOVED, BRIEF WAS SOILED WITH URINE. FRESH DRAW SHEET, CHUX, AND BRIEF PLACED. PATIENT WITH SMALL BOWEL MOVEMENT. NEW ALLEVYNS PLACED. PATIENT REPOSITIONED TO COMFORT, ONE PILLOW ON EACH SIDE OF PATIENTS UPPER BODY, ONE PILLOW UNDER PATIENT'S HEELS TO "FLOAT" AND GET PRESSURE OFF HEELS. PATIENT WITH VERBAL COMFIRMATION THAT SHE IS COMFORTABLE. INTAKE AND OUTPUT DOCUMENTED. VITAL SIGNS TAKEN AND ARE STABLE. BED ALARM ACTIVATED. CALL LIGHT AND PERSONAL BELONGINGS ARE WITHIN REACH. SCARLETT PINK IN ROOM ASSISTING THIS RN WITH CARES.
--- NOTE | 2024-11-08 04:02 | NUR ---
PATIENT RESTING IN BED ON HER BACK WITH HER EYES CLOSED. EVEN AND UNLABORED RESPIRATIONS NOTED. CALL LIGHT AND PERSONAL BELOGINGS ARE WITHIN REACH. TELE LEADS FIXED.
[2024-11-08 05:19] LABS: BASOPHILS 0.3 % (0.1-1.2); EOSINOPHILS 2.7 % (0.7-5.8); LYMPHOCYTES 16.0 % (19.3-51.7); MCH 29.7 PG (25.6-32.2); MCHC 34.2 g/dL (32.2-35.5); MCV 86.7 fL (79.4-94.8); MONOCYTES 7.4 % (4.7-12.5); NEUTROPHILS 73.2 % (34.0-71.1); RBC 5.05 M/uL (3.93-5.22)
--- NOTE | 2024-11-08 05:20 | NUR ---
PATIENT IV FLUSHED WITH 10ML OF NS, DRESSING IS INTACT. IV FLUIDS INFUSING PER ORDER. INTAKE AND OUTPUT DOCUMENTED. PATIENT WITHOUT FURTHER NEEDS AT THIS TIME. CALL LIGHT AND PERSONAL BELONGINGS ARE WITHIN REACH.
[2024-11-08 05:43] LABS: ALT (SGPT) 13.0 U/L (14-59); AST (SGOT) 18.0 U/L (15-37); GLOMERULAR FILTRATION RATE,EST 96.0 mL/min (>60); PROTEIN, TOTAL 6.1 g/dL (6.4-8.2); UREA NITROGEN 16.0 mg/dL (7-18)
--- NOTE | 2024-11-08 06:00 | NUR ---
PATIENT BRIEF CHECKED AND WAS SLIGHTLY SOILED DUE TO PATIENT WITH GREAT AMOUT OF URINE OUTPUT AND OVERFLOWING PUREWICK CANISTER. NEW PUREWICK PLACED, FRESH BRIEF PROVIDED. PATIENT CHUX AND LINEN ARE DRY. SCARLETT PINK IN ROOM TO ASSIST.
--- NOTE | 2024-11-08 06:05 | NUR ---
SCARLETT PINK AND CARLOTA FAM DID A BRIEF CHANGE AND PUREWICK CHANGE ON PATIENT. PATIENT WAS ASLEEP IN BED UPON ENTERING THE ROOM. AFTER BRIEF CHANGE PATIENT WAS REPOSITIONED IN BED. VITALS SIGNS WERE TAKEN BY SCARLETT PINK. NO FUTHER NEEDS AT THIS TIME AND CALL LIGHT WITHIN REACH.
--- NOTE | 2024-11-08 07:04 | NUR ---
REPORT RECEIVED FROM CHEMISTRY QUALITY CONTROL TECHNICIAN RN SARWAT. PATIENT IS LYING IN BED WITH EYES OPEN AND RESPIRATIONS ARE EVEN AND UNLABORED. PATIENT IS ON ROOM AIR WITH THE TV ON. CALL LIGHT AND PERSONAL BELONGINGS ARE WITHIN REACH.
--- NOTE | 2024-11-08 07:50 | NUR ---
PATIENT IS LYING IN BED WITH HOB ELEVATED. PATIENT WITH EYES OPEN AND RESPIRATIONS ARE EVEN AND UNLABORED. PATIENT IS ON ROOM AIR WITH THE TV ON. FULL ASSESSMENT COMPLETE AND DOCUMENTED IN THE CHART. PATIENT IS ALERT AND ORIENTED TO SELF ONLY. PATIENT REMAINS ON TELEMETRY NUMBER 6 IN ATRIAL FIBRILLATION. IRREGULAR HEART TONES ON AUSCULTATION. LUNG SOUNDS ARE DIMINISHED THROUGHOUT. PATIENT UNABLE TO FOLLOW DIRECTIONS FOR DEEP BREATHS. PATIENT NEEDS ASSISTANCE WITH FEEDING. IV SITE REMAINS CLEAN, DRY, AND INTACT. LR IS INFUSING AT 125 ML/HR. DRESSING TO THE COCCYX/BUTTOCKS IS CLEAN, DRY, AND AND INTACT. SCATTERED BRUISING NOTED. WAFFLE MATTRES IN PLACE. PUREWICK WITH CLEAR YELLOW URINE IN THE CANISTER. PATIENT WITH NO FURTHER NEEDS AT THIS TIME. CALL LIGHT AND PERSONAL BELONGINGS WITHIN REACH. PATIENT FLOATED WITH CARLOTA DAVID. PATIENT TOLERATED WELL. SCARLETT TAN IS IN THE ROOM NOW.
[2024-11-08] MEDS ORDERED: MAGNESIUM SULFATE 2 GM/50 ML BAG IV SCH (09:00)
--- NOTE | 2024-11-08 09:02 | NUR ---
PATIENT IS LYING IN BED WITH HOB ELEVATED. PATIENT WITH EYES OPEN AND RESPIRATIONS ARE EVEN AND UNLABORED. PATIENT IS AT BEDSIDE AND ASSISTING PATIENT WITH BREAKFAST. CALL LIGHT AND PERSONAL BELONGINGS ARE WITHIN REACH.
--- NOTE | 2024-11-08 10:17 | NUR ---
PT HAS VISITOR IN ROOM. PT SITTING UP AND SLEEPING. PT HAS FRESH WATER NEAR HER BED AND CALL LIGHT WITHIN REACH.
--- NOTE | 2024-11-08 11:00 | NUR ---
MORNING MEDICATIONS ADMINISTERED PER THE EMAR. GIVEN UPDATE ON PATIENT NOT RECEIVING PRADAXA DOSE DUE TO PATIENT NOT FOLLOWING COMMANDS AND DOZING OFF. MD WITH NO FURTHER ORDERS AT THIS TIME. PATIENT REMAINS SITTING IN THE RECLINER AT BEDSIDE. CALL LIGHT AND PERSONAL BELONGINGS ARE WITHIN REACH.
--- NOTE | 2024-11-08 13:43 | NUR ---
PATIENT IS LYING IN BED WITH HOB ELEVATED. PATIENT WITH EYES CLOSED AND RESPIRATIONS ARE EVEN AND UNLABORED. PATIENT IS SITTING IN THE ROOM AND IS ON HIS PHONE. CALL LIGHT AND PERSONAL BELONGINGS ARE WITHIN REACH.
--- NOTE | 2024-11-08 14:24 | NUR ---
PATIENT IS LYING IN BED WITH HOB ELEVATED. PATIENT WITH EYES CLOSED AND RESPIRATIONS ARE EVEN AND UNLABORED. PATIENT REMAINS IN THE ROOM AND SITTING IN THE RECLINER. PATIENT IS LOOKING ON HER PHONE. CALL LIGHT AND PERSONAL BELONGINGS ARE WITHIN REACH.
--- NOTE | 2024-11-08 14:37 | NUR ---
pt resting in room. one visitor in room. room picked up.
--- NOTE | 2024-11-08 15:14 | NUR ---
PATIENT IS LYING IN BED WITH EYES CLOSED AND RESPIRATIONS ARE EVEN AND UNLABORED. PATIENT MORE DROWSY THIS AFTERNOON BUT IS AROUSABLE TO VOICE. NON-VERBAL PAIN SCALE COMPLETE AND GOT 0/10. PATIENT UNABLE TO ANSWER ORIENTATION QUESTIONS AT THIS TIME. PATIENT IS ON TELEMETRY NUMBER 6 AND IS IN ATRIAL FIBRILLATION. CARDIAC WITH IRREGULAR HEART TONES ON AUSCULTATION. IV SITE WITH LR INFUSING AT 100 ML/HR. IV DRESSING IS CLEAN, DRY, AND INTACT. PATIENT IS ON ROOM AIR AND LUNG SOUNDS ARE CLEAR IN THE UPPER LOBES AND DIMINISHED IN THE BASES. PATIENT LEFT AT THIS TIME. CALL LIGHT AND PERSONAL BELONGINGS ARE WITHIN REACH.
--- NOTE | 2024-11-08 15:23 | NUR ---
NOTIFIED OF PATIENT INCREASED DROWSINESS AND THE PATIENTS HUSBANDS CONCERNS. MD ROUNDED ON THE PATIENT AT THIS TIME. NO FURTHER ORDERS.
--- NOTE | 2024-11-08 16:00 | NUR ---
PATIENT IS LYING IN BED WITH HOB ELEVATED. PATIENT WITH EYES CLOSED AND RESPIRATIONS ARE EVEN AND UNLABORED. CALL LIGHT AND PERSONAL BELONGINGS ARE WITHIN REACH.
[2024-11-08] MEDS ORDERED: POLYETHYLENE GLYCOL 3350 1 PACKET PO SCH (17:31)
--- NOTE | 2024-11-08 17:32 | NUR ---
NOTIFIED OF PATIENT LAST BM OF 11/03/24 AND HOW HER REPORTS HE HAS A BM EVERY 3 TO 7 DAYS. STATED HE WOULD PUT IN ORDERS. CALL ENDED.
[2024-11-08 17:38] LABS: GLOMERULAR FILTRATION RATE,EST 90.0 mL/min (>60); UREA NITROGEN 21.0 mg/dL (7-18)
--- NOTE | 2024-11-08 18:09 | NUR ---
finished feeding pt, she ate 75% of dinner. pt had a little trouble with swallowing, especially water. pt coughed a little bit at the end of dinner. this blog writer checked mouth and pt had swallowed all her dinner. turned the tv on for a little while for pt entertainment. call light within reach, curtain open for safety. no visitors in room currently.
[2024-11-08] MEDS ORDERED: MAGNESIUM SULFATE 2 GM/50 ML BAG IV ONE (18:15)
--- NOTE | 2024-11-08 19:20 | NUR ---
REPORT RECIEVED FROM CARLOTA CASEY. PATIENT REPOSITION. PATIENT SITTING UP IN BED WATCHING TV. EXTRA PILLOW ADDED UNDER PATIENT HEELS FOR PRESSURE RELIEF. PATIENT ASSESSMENT COMPLETED. IV FLUIDS INFUSING PER ORDER. PATIENT WITHOUT FURTHER NEEDS AT THIS TIME. CALL LIGHT AND PERSONAL BELONGINGS ARE WITHIN REACH.
--- NOTE | 2024-11-08 20:00 | NUR ---
PATIENT RESTING IN BED WATCHING TV. CALL LIGHT AND PERSONAL BELONGINGS ARE WITHIN REACH.
[2024-11-08] MEDS ORDERED: SENNOSIDES/DOCUSATE 1 EA TAB PO SCH (21:00)
[2024-11-08] MEDS ORDERED: ENOXAPARIN SODIUM 80 MG/0.8 ML SYR SUB-Q SCH (21:24)
--- NOTE | 2024-11-08 21:53 | NUR ---
PATIENT MEDICATED PER EMAR. PATIENT REPOSITIONED, BRIEF CHANGED, WOUND CARE COMPLETED PER ORDER. PATIENT WITH LARGE, SOFT BM. VITAL SIGNS TAKEN AND ARE STABLE. PUREWICK CHANGED. PATIENT WITHOUT FURTHER NEEDS AT THIS TIME. CALL LIGHT AND PERSONAL BELONGINGS ARE WITHIN REACH. NEW BAG OF IV FLUIDS INFUSING PER ORDER.
--- NOTE | 2024-11-08 22:52 | NUR ---
PATIENT RESTING IN BED WITH HER EYES CLOSED. EVEN AND UNLABORED RESPIRATIONS NOTED. CALL LIGHT AND PERSONAL BELONGINGS ARE WITHIN REACH.
--- NOTE | 2024-11-08 23:56 | NUR ---
PATIENT RESTING IN BED WITH HER EYES CLOSED. EVEN AND UNLABORED RESPIRATIONS NOTED. CALL LIGHT AND PERSONAL BELONGINGS ARE WITHIN REACH.
[2024-11-09 01:25] VITALS: BP 163/81
--- NOTE | 2024-11-09 01:45 | NUR ---
PATIENT RESTING IN BED WITH HER EYES CLOSED. EVEN AND UNLABORED RESPIRATIONS NOTED. CALL LIGHT AND PERSONAL BELONGINGS ARE WITHIN REACH.
[2024-11-09 03:31] VITALS: BP 163/81
[2024-11-09 05:18] LABS: BASOPHILS 0.4 % (0.1-1.2); EOSINOPHILS 3.1 % (0.7-5.8); LYMPHOCYTES 18.8 % (19.3-51.7); MCH 29.4 PG (25.6-32.2); MCHC 33.5 g/dL (32.2-35.5); MCV 87.8 fL (79.4-94.8); MONOCYTES 7.7 % (4.7-12.5); NEUTROPHILS 69.7 % (34.0-71.1); RBC 4.76 M/uL (3.93-5.22)
[2024-11-09 05:38] LABS: ALT (SGPT) 11.0 U/L (14-59); AST (SGOT) 12.0 U/L (15-37); GLOMERULAR FILTRATION RATE,EST 96.0 mL/min (>60); PROTEIN, TOTAL 5.7 g/dL (6.4-8.2); UREA NITROGEN 13.0 mg/dL (7-18)
[2024-11-09 05:55] VITALS: BP 155/79
--- NOTE | 2024-11-09 06:33 | NUR ---
PATIENT RESTING IN BED ON HER BACK. PIPE STRESS ENGINEER'S REPOSITIONED PATIENT. PATIENT NOW RESTING WITH HER EYES CLOSED. EVEN AND UNLABORED RESPIRATIONS NOTED. CALL LIGHT AND PERSONAL BELONGINGS ARE WITHIN REACH.
--- NOTE | 2024-11-09 06:48 | NUR ---
PATIENT RESTING IN BED, AWAKE. PATIENT WITHOUT ANY NEEDS AT THIS TIME. CALL LIGHT AND PERSONAL BELONGINGS ARE WITHIN REACH.
--- NOTE | 2024-11-09 07:51 | NUR ---
PT QUIET ALERT AT TIME OF SHIFT REPORT. NEEDED ITEMS AT BEDSIDE
[2024-11-09] MEDS ORDERED: POTASSIUM CHLORIDE 20 MEQ/15 ML CUP PO ONE (08:00)
[2024-11-09] MEDS ORDERED: MAGNESIUM SULFATE 2 GM/50 ML BAG IV ONE (08:00)
[2024-11-09] MEDS ORDERED: CEFDINIR300 MG PO (09:03)
[2024-11-09] MEDS ORDERED: ENOXAPARIN80 MG/0.8 SUB-Q (09:04)
--- NOTE | 2024-11-09 09:11 | NUR ---
PATIENT GIVEN PO POTASSIUM, SPOUSE ASSISTED PATIENT IN TAKING ORAL POTASSIUM. IV MAGNESIUM IS INFUSING FOR ONE HOUR. [facility] VAN TIME IS CHANGED TO 11AM FOR TRANSPORT TO [facility].
--- NOTE | 2024-11-09 09:34 | NUR ---
DISCHARGE FAXED TO [facility]. PATIENT TO LEAVE HERE VIA [facility] AT 11 AM. AT BEDSIDE.IM LETTER COMPLETED. NO FUTHER CM NEEDS.
[2024-11-09 10:17] VITALS: BP 134/86
[2024-11-09 10:53] VITALS: BP 134/86
--- NOTE | 2024-11-11 15:36 | EKG ---
[facility] [address] [facility] [place] [address] Signed Atrial fibrillation Possible Inferior infarct (cited on or before 02-FEB-2023) ST \T\ T wave abnormality, consider lateral ischemia Abnormal ECG When compared with ECG of 04-NOV-2024 11:44, No significant change was found Confirmed by Jerardo Walker MD () on 11/11/2024 3:36:39 PM Electronically Signed By: JERARDO WALKER MD 11/11/24 1536 PATIENT NAME: NORA VARGAS Electrocardiogram DATE OF : 52 PHYSICIAN: JERARDO WALKER MD REPORT #: [id number] REPORT IS CONFIDENTIAL AND NOT TO BE RELEASED WITHOUT AUTHORIZATION
== END 2024-11-09 10:53 | DRG 603 ==
LOC: ED 10:36 → MS 14:16
PROVIDERS: Emergency Medicine; Family Medicine; ADMIT Internal Medicine; ATTEND Internal Medicine
DX: L03.317 Cellulitis of buttock (principal); E87.6 Hypokalemia; E83.42 Hypomagnesemia; I48.91 Unspecified atrial fibrillation; E03.9 Hypothyroidism, unspecified; E86.0 Dehydration; L89.329 Pressure ulcer of left buttock, unspecified stage; L89.319 Pressure ulcer of right buttock, unspecified stage; I10 Essential (primary) hypertension; I69.320 Aphasia following cerebral infarction; E11.40 Type 2 diabetes mellitus with diabetic neuropathy, unspecified; Z87.19 Personal history of other diseases of the digestive system; Z85.42 Personal history of malignant neoplasm of other parts of uterus; Z87.891 Personal history of nicotine dependence; Z90.710 Acquired absence of both cervix and uterus; Z79.899 Other long term (current) drug therapy; Z79.84 Long term (current) use of oral hypoglycemic drugs; Z79.4 Long term (current) use of insulin; Z79.890 Hormone replacement therapy; Z79.01 Long term (current) use of anticoagulants
CPT/HCPCS: 36415; 70450; 70551; 71045; 80048; 80053; 80162; 81001; 83605; 83735; 84100; 84132; 84443; 84484; 85025; 87502; 92507; 92526; 93005; 93010; 97112; 97162; 97166; 97530; 97535; A9270; J0696; J1650; J1815; J3475; J3480; J3490; J7030; J7060; J7121; U0002